=== PATIENT | female | born 1945 | race Caucasian/White ===

== ENCOUNTER 2018-02-23 00:38 | Outpatient (CLI) | payer MEDICARE, SELFPAY ==
--- NOTE | 2018-02-23 13:02 | DI.MAMMO_ITS ---
SYMPTOM/DIAGNOSIS: SCREENING, Z12.31 PREVENTATIVE CARE Z00.00 MAMMOGRAM: 02/23 Mammograms were interpreted according to the usual protocol including computer analysis with CAD system, tomosynthesis and C view imaging. The breasts are of moderate density with fairly symmetrical distribution of fibroglandular tissue. No dominant mass or clumped microcalcification is identified in either breast. The current examination is compared with previous examinations including July 2016 and there has been no gross interval change in appearance in comparison with the previous studies. CONCLUSION: No specific evidence of malignancy at this time. Routine screening examinations are suggested at yearly intervals due to the family history of breast carcinoma. Category 1, breast density category B. SA ASSESSMENT OF FINDINGS: Negative. Category 1. Patient will receive a letter notifying them of these results. BI-RADS category B. There are scattered areas of fibroglandular density.
== END 2018-02-23 00:58 ==
PROVIDERS: PCP Internal Medicine; Visit Provider Internal Medicine
DX: Z12.31 Encounter for screening mammogram for malignant neoplasm of breast (principal); Z80.3 Family history of malignant neoplasm of breast
CPT/HCPCS: 77063; 77067

== ENCOUNTER 2018-05-26 18:18 | Emergency (ER) | payer MEDICARE, SELFPAY ==
[2018-05-26] VITALS (24 sets, daily range): BP systolic 141–149; BP diastolic 56–128; PULSE 86–99; RESP 17; TEMP 37.7; O2SAT 83–96
--- NOTE | 2018-05-26 18:24 | ED.GENADUL_ITS ---
Discharge Plan Disposition Patient Disposition: HOME Condition: Stable Discharge Details Chief Complaint: Nausea/Vomit/Diar Clinical Impression: Colitis Reason For Visit: VIVIAN Primary Care Provider: Trent Weeks ED Provider: Saul Reynoso Home Meds and New Rx's Prescriptions: New prochlorperazine maleate [Compazine] 10 mg tablet 10 mg PO Q6H 5 Days Qty: 20 RF: 0 levofloxacin 750 mg tablet 750 mg PO DAILY Qty: 5 RF: 0 oxycodone 5 mg tablet 5 mg PO Q6H PRN (Reason: pain) Qty: 10 RF: 0 Continued multivitamin [Daily Multi-Vitamin] tablet 1 tab PO DAILY RF: 0 turmeric root extract 500 mg capsule 500 mg PO DAILY RF: 0 Lantus U-100 Insulin 100 UNIT/1 ML solution 58 units Sub-Q DAILY RF: 0 Novolog Flexpen U-100 Insulin 300 UNITS/3 ML insulin pen Sub-Q TID RF: 0 aspirin [Ecotrin Low Strength] 81 MG tablet,delayed release (DR/EC) 81 mg PO DAILY RF: 0 metoprolol succinate 25 MG tablet extended release 24 hr 25 mg PO DAILY RF: 0 torsemide 100 MG tablet 50 mg PO DAILY RF: 0 allopurinol 100 MG tablet 200 mg PO QPM RF: 0 citalopram [Celexa] 20 MG tablet 20 mg PO QPM RF: 0 bupropion HCl [Wellbutrin SR] 150 MG tablet extended release 12 hr 150 mg PO BID RF: 0 acetaminophen [Tylenol] 325 MG tablet 650 mg PO Q6H PRN PRN (Reason: Pain) Qty: 90 RF: 0 ascorbic acid (vitamin C) 500 MG tablet 500 mg PO DAILY Qty: 90 RF: 0 vitamin E 400 UNIT capsule 400 unit PO DAILY Qty: 90 RF: 0 Discharge Instructions Instructions: Colitis (ED) Additional Instructions: Your cat scan showed that you have inflammation of your colon. We are treating you with antibiotics you need to take your prescribed medications especially your torsemide Your troponin was just oustide the normal range and was in the indeterminate range. If you have chest pain or pressure or significant shortness of breath you need to return to the emergency department Also return to the emergency department if you have severe worsening of pain or persistent vomit you should follow up with your primary care provider within a week. You stated you do not want to have a colonoscopy but if you change your mind your primary care provider should be able to refer you to have one Medical Decision Making <Jaswinder Burton MD - Last Filed: 05/26/18 19:45> 72-year-old female diabetic presents via EMS from home with day 4 of nausea, vomiting, multiple episodes of loose watery stool. She is not, no chest pain abdominal pain or bloating or bloating. She has been attending to her as he is getting cancer treatment at [facility]. No known sick contacts or recent travel. She arrives to the emergency department improved following 500 cc of normal saline and Zofran. She may have simple gastroenteritis or other developing intrabdominal pathology, particularly given her tenderness of the LLQ on exam. Initial labs reveal WBC 17, BUN 26, Cr 1.6, troponin in the indeterminate range at 0.08. The latter may represent stress-induced increase of troponin. Patient referred for CT imaging to exclude diverticulitis or other evidence of peritonitis. Case will be signed out to Dr. Reynoso pending diagnostic imaging. Please see his note. Lab Data Lab results reviewed: Yes I reviewed the patient's lab results. Laboratory Results - last 24 hr 05/26/18 05/26/18 19:02 19:02 WBC 17.33 H RBC 4.30 Hgb 13.3 Hct 40.7 MCV 94.7 MCH 30.9 MCHC 32.7 RDW 14.1 Plt Count 126 L MPV 11.7 H Immature Gran % 0.2 Neutrophils % 88.1 Lymphocytes % 5.0 Monocytes % 6.6 Eosinophils % 0.0 Basophils % 0.1 Absolute Neutrophils 15.27 H Absolute Lymphocytes 0.87 L Absolute Monocytes 1.14 H Absolute Eosinophils 0.00 Absolute Basophils 0.02 Sodium 140 Potassium 3.8 Chloride 102 Carbon Dioxide 29.3 Anion Gap 8.7 BUN 26 H Creatinine 1.68 H Estimated GFR/1.73 m2 29.78 Glucose 285 H Calcium 8.9 Magnesium 1.7 L Total Bilirubin 1.0 AST 23 ALT 30 Alkaline Phosphatase 66 Troponin I 0.08 H Total Protein 6.5 Albumin 3.4 Lipase 87 ECG Data Attestation: I personally reviewed and interpreted this ECG (s) as follows: Interpretation: Normal sinus rhythm with a rate of approximately 100, there is an ventricular conduction delay, positive LVH, repolarization abnormalities with T wave inversions that are similar to previous comparison <Saul Reynoso MD - Last Filed: 05/26/18 22:11> Imaging Data Radiologic Study: Attestation: I personally reviewed and interpreted this imaging study as follows: Imaging: CT Scan Radiologist's impression: IMPRESSION: 1. Mild diffuse colon wall thickening may be related to under distention versus colitis. 2. Bibasilar intralobular septal thickening with trace bilateral pleural effusions suggestive of mild CHF. Lab Data Lab results reviewed: Yes I reviewed the patient's lab results. HPI <Jaswinder Burton MD - Last Filed: 05/26/18 19:45> General Mode of arrival: EMS . Date/Time Provider Initiated Documentation: 05/26/18 18:48 . Limitations to Documentation: no limitations . Information obtained by: patient and EMS . History of Present Illness 72 year old F presents to the emergency department with the chief complaint of Nausea, vomiting, diarrhea for 4 days. Unable to take liquids or solids, described as moderate, Quality is described as dull and constant, and is localized to the abdomen. Patient reports no radiation. Patient started experiencing this day(s) and it has been constant. Eating improves symptom(s), Rest worsens symptoms . Patient notes nausea/vomiting and weakness; denies chest pain and cough. Patient did receive the following treatments prior to arrival, other (IV fluids per EMS) Related Data Home Medications Medication Instructions Recorded Confirmed Lantus U-100 Insulin 58 units SUB-Q DAILY 09/24/12 02/23/18 Novolog Flexpen U-100 Insulin 0 units SUB-Q TID 09/24/12 05/26/18 aspirin [Ecotrin Low Strength] 81 mg PO DAILY 07/27/13 05/26/18 metoprolol succinate 25 mg PO DAILY 07/27/13 05/26/18 torsemide 50 mg PO DAILY 01/16/14 05/26/18 allopurinol 200 mg PO QPM 10/23/16 05/26/18 acetaminophen [Tylenol] 650 mg PO Q6H PRN PRN #90 tab 10/25/16 05/26/18 ascorbic acid (vitamin C) 500 mg PO DAILY #90 tab 10/25/16 05/26/18 bupropion HCl [Wellbutrin SR] 150 mg PO BID 10/25/16 05/26/18 citalopram [Celexa] 20 mg PO QPM 10/25/16 05/26/18 vitamin E 400 unit PO DAILY #90 cap 10/25/16 05/26/18 multivitamin tablet 1 tab PO DAILY 02/23/18 05/26/18 turmeric root extract 500 mg 500 mg PO DAILY 02/23/18 05/26/18 capsule levofloxacin 750 mg PO DAILY #5 tab 05/26/18 oxycodone 5 mg PO Q6H PRN #10 tab 05/26/18 prochlorperazine maleate 10 mg PO Q6H 5 Days #20 tab 05/26/18 [Compazine] Previous Rx's Medication Instructions Recorded acetaminophen [Tylenol] 650 mg PO Q6H PRN PRN #90 tab 10/25/16 ascorbic acid (vitamin C) 500 mg PO DAILY #90 tab 10/25/16 vitamin E 400 unit PO DAILY #90 cap 10/25/16 levofloxacin 750 mg PO DAILY #5 tab 05/26/18 oxycodone 5 mg PO Q6H PRN #10 tab 05/26/18 prochlorperazine maleate 10 mg PO Q6H 5 Days #20 tab 05/26/18 [Compazine] Allergies Allergy/AdvReac Type Severity Reaction Status Date / Time ciprofloxacin [From Cipro] Allergy Severe Itching Verified 05/26/18 18:51 ciprofloxacin HCl Allergy Severe Verified 05/26/18 18:51 [From Cipro] latex Allergy Severe Itching Verified 05/26/18 18:51 mupirocin [From Bactroban] Allergy Severe Verified 05/26/18 18:51 mupirocin calcium Allergy Severe Verified 05/26/18 18:51 [From Bactroban] Penicillins Allergy Severe Anaphylaxsi Verified 05/26/18 18:51 s sulfamethoxazole Allergy Intermediate Skin Rash Verified 05/26/18 18:51 [From Septra] trimethoprim [From Septra] Allergy Intermediate Skin Rash Verified 05/26/18 18: 51 ranitidine HCl [From Zantac] Allergy Unknown Verified 05/26/18 18:51 cephalexin monohydrate AdvReac Intermediate Itching Verified 05/26/18 18:51 [From Keflex] clindamycin AdvReac Intermediate Nausea Verified 05/26/18 18:51 repaglinide [From Prandin] AdvReac Intermediate myalgia Verified 05/26/18 18:51 simvastatin AdvReac Intermediate myalgia Verified 05/26/18 18:51 Review of Systems <Jaswinder Burton MD - Last Filed: 05/26/18 19:45> Review of Systems 6 systems reviewed and otherwise negative PFSH <Jaswinder Burton MD - Last Filed: 05/26/18 19:45> Surgical History Triple Coronary bypass (~2012) aortic valve replacement (~2012) Family History Mother Breast cancer Social History Smoking/Tobacco Use Status: Never Female Reproductive History Menstrual Menopause type: natural History History 2 Para 2 Hx # Term Pregnancies 2 Multiple births Hx # Pregnancies Ectopic pregnancies AB induced Hx Number of Living Children AB spontaneous Exam <Jaswinder Burton MD - Last Filed: 05/26/18 19:45> Narrative Exam Narrative: GEN: awake, alert, oriented 3. Pleasant, well groomed, interactive. HEAD: Normocephalic, atraumatic ENT: Mucous membranes moist, oropharynx unremarkable, External ear exam unremarkable EYES: PERRL, EOMI NECK: Full ROM, no LUIS, no menigismus CHEST/RESP: Nontender, clear to auscultation bilateral, no wheeze/rhonchi/rales CARDIOVASCULAR: Borderline tachycardia, systolic ejection click, rub anson. 2+ Rad pulse bilateral ABDOMEN: Soft, LLQ tender to palpation, no mass. +Bowel sounds EXT: Full ROM, no edema, no rash Neuro: Grossly normal neurologic exam, conversant, interactive. Psych: Speech fluent, thoughts congruent, affect normal Sign Out <Jaswinder Burton MD - Last Filed: 05/26/18 19:45> Sign Out Data: Sign Out Comment: Followup diagnostics Last updated by Jaswinder Burton MD at 05/26/18 19:51 Post-Handoff Eval: PT resting comfortably in bed without complaints after pain medication and nausea medicine and is toleating PO. CT shows colitis and mild chf, she is supposed to be on torsemide which she hasn't been able to take for 3 days or so due to her n/v and gi symptoms and is likely causing her o2 saturations of 90% on room air during my exam. Her first troponin was 0.08 and second 0.15, denies any chest pain or pressure. I suspect this is demand type elevation of her elevated troponin and not an nstemi given her lack of chest pain. She has no desire to stay in the hospital and wants to be discharged to home and has capacity to make her own decisions. I am strongly advising the pt to f/u with her pcp within a week and will send her home on abx (started here without reactions, levofloxacin) along with nausea medication (compazine as this helped her more than zofran) and advised her to return here sooner if any worsening symptoms
[2018-05-26] MEDS: Lactated Ringers 1,000 ML 125 ML IV (19:12)
[2018-05-26 19:15] LABS: Abs Immature Grans 0.03 k/cumm (0.0-0.09); Absolute Basophil Count 0.02 k/cumm (0.0-0.2); Absolute Lymphocyte Count 0.87 k/cumm (1.2-3.4); Absolute Monocyte Count 1.14 k/cumm (0.11-0.7); Absolute Neutrophil Count 15.27 k/cumm (1.2-6.7); Basophils % 0.1; HCT 40.7 % (36.0-46.0); HGB 13.3 g/dL (12.0-15.5); Immature Grans % 0.2; Mean Corp. HGB Concentration 32.7 g/dL (32.0-36.0); Mean Corpuscular Hemoglobin 30.9 pg (27.0-33.0); Mean Corpuscular Volume 94.7 fL (80-95); Mean Platelet Volume 11.7 fL (8.0-11.0); Monocytes % 6.6; Neutrophils % 88.1; Platelet Count 126 x1000/uL (130-400); RBC Distribution Width 14.1 % (11.7-14.6); White Blood Cell Count 17.33 k/cumm (4.4-10.8)
[2018-05-26 19:38] LABS: ALT 30 U/L (12-78); AST 23 U/L (15-37); Albumin 3.4 g/dL (3.4-5.0); Alkaline Phosphatase 66 U/L (46-116); Anion Gap 8.7 mmol/L (3-11); BUN 26 mg/dL (7-18); CO2 29.3 mmol/L (21.0-32.0); CREATININE 1.68 mg/dL (0.55-1.02); Calcium 8.9 mg/dL (8.5-10.1); Chloride 102 mmol/L (98-107); Estimated GFR 29.78 (mL/min/1.73m2); Glucose 285 mg/dL (70-100); Lipase 87 U/L (73-393); Magnesium 1.7 mg/dL (1.8-2.4); Potassium 3.8 mmol/L (3.5-5.1); Sodium 140 mmol/L (136-145); Total Protein 6.5 g/dL (6.4-8.2)
[2018-05-26 19:40] LABS: Troponin I 0.08 ng/mL (0.00-0.06)
--- NOTE | 2018-05-26 19:43 | DI.CT_ITS ---
SYMPTOMS/DIAGNOSIS: ELEVATED CREATININE, LLQ ABD PAIN, VOMITING CT OF THE ABDOMEN AND PELVIS: Noncontrast exam was performed. There are tiny bilateral pleural effusions. There are mildly increased interstitial markings suspicious for CHF. No pericardial effusion is seen. The heart appears mildly enlarged. There is a small hiatal hernia. The liver, spleen, adrenals and pancreas are unremarkable. Gallstones are noted. There is no biliary dilatation or abnormal gallbladder distention. There is no hydronephrosis. There is no free air or free fluid. No bowel dilatation or inflammatory changes are seen. The appendix appears normal. A uterine fibroid is seen. The bladder appears intact. Degenerative changes are seen in the spine. IMPRESSION: Findings suggestive of mild CHF. No acute abnormality is seen in the abdomen or pelvis.
[2018-05-26] MEDS: Ondansetron 4 MG/2 ML VIAL (20:31)
[2018-05-26] MEDS: fentaNYL 100 MCG/2 ML VIAL IVP (20:31)
--- NOTE | 2018-05-26 20:51 | DI.VRAD_ITS ---
EXAM: CT Abdomen and Pelvis Without Contrast EXAM DATE/TIME: 05/26/2018 7:44 PM CLINICAL HISTORY: 72 years old, female; Pain; Other: Elev creat llq abd pain vomiting TECHNIQUE: Axial computed tomography images of the abdomen and pelvis without contrast. Coronal and sagittal reformatted images were created and reviewed. COMPARISON: No relevant prior studies available. FINDINGS: Lower thorax: Mild bibasilar intralobular septal thickening with trace bilateral pleural effusions suggestive of mild CHF. ABDOMEN: Liver: Normal. No mass. Gallbladder and bile ducts: Cholelithiasis without evidence of gallbladder wall thickening or pericholecystic fluid. Small calcified calculus likely in the gallbladder neck, no CT evidence of acute cholecystitis. Pancreas: Normal. No ductal dilation. Spleen: Normal. No splenomegaly. Adrenals: Normal. No mass. Kidneys and ureters: Punctate calculus in the left renal hilum either a nonobstructing renal calculus versus small vascular calcification. Stomach and bowel: No evidence of enteritis or small bowel obstruction. Mild colon wall thickening involving the ascending, transverse, and sigmoid colon may be related to under distention versus colitis. Appendix: Normal appendix. PELVIS: Bladder: Unremarkable as visualized. Reproductive: Unremarkable as visualized. ABDOMEN and PELVIS: Intraperitoneal space: No pneumoperitoneum or free fluid. Bones/joints: Moderate multilevel degenerative changes of the spine with grade 1 anterolisthesis of L3 on L4 and L4 on L5. Soft tissues: Mild infiltration of the subcutaneous soft tissues in the mid lower back, likely representing dependent edema. Vasculature: Moderate aortoiliac atherosclerotic calcification. Normal aortic caliber. Lymph nodes: Normal. No enlarged lymph nodes. IMPRESSION: 1. Mild diffuse colon wall thickening may be related to under distention versus colitis. 2. Bibasilar intralobular septal thickening with trace bilateral pleural effusions suggestive of mild CHF. Dictated and Authenticated by: Rachel Loyd MD. Ordering:ALISHA San MD
[2018-05-26] MEDS: Furosemide 100 MG/10 ML VIAL 80 MG IVP (21:07)
[2018-05-26] MEDS: LEVOFLOXACIN 500 MG, LEVOFLOXACIN 250 MG 750 MG PO ×2 (21:07→22:15)
[2018-05-26] MEDS: Prochlorperazine 10 MG/2 ML VIAL IVP (21:31)
[2018-05-26] MEDS: HYDROmorphone 2 MG/ML VIAL 1 MG IVP (21:31)
[2018-05-26 21:46] LABS: Troponin I 0.15 ng/mL (0.00-0.06)
[2018-05-26] MEDS: oxyCODONE 5 MG TAB 25 MG PO (22:15)
[2018-05-26] MEDS: Prochlorperazine 10 MG TAB PO (22:15)
--- NOTE | 2018-05-28 10:33 | PDOC.ERCMPRO ---
Care Management Progress Note 05/28-Marguerite's daughter Rosana Rothman called and stated that her mother has no way to get her prescription. Marguerite was seen in the emergency department Friday evening. Rosana does not live around here so she can not just go pick it up. Called [facility] and they deliver on Mon, Weds, Fri. Called [facility] and they deliver M-F but the bulk driver leaves by 9 am so they can not do it today. Called Rosana back at [phone] and discussed above. Rosana stated that her father recently had surgery and has home health. Normally her mother can picking table worker her meds but she is too sick. She was supposed to take some of the medication yesterday. Discussed with Rosana to call Home Health and see if they could picking table worker the scripts before they come, gave [facility]ana Home [facility]'s number. Also discussed if a neighbor could picking table worker the scripts. Rosana stated she would try home health and then the neighbor. Rosana has my contact information if further assistance is needed.
--- NOTE | 2018-05-28 10:37 | CMPROGNOTE_ITS ---
Care Management Progress Note 05/28-Marguerite's daughter Rosana Rothman called and stated that her mother has no way to get her prescription. Marguerite was seen in the emergency department Friday evening. Rosana does not live around here so she can not just go pick it up. Called [facility] and they deliver on Mon, Weds, Fri. Called [facility] and they deliver M-F but the dedicated truck driver leaves by 9 am so they can not do it today. Called Rosana back at [phone] and discussed above. Rosana stated that her father recently had surgery and has home health. Normally her mother can oyster picker her meds but she is too sick. She was supposed to take some of the medication yesterday. Discussed with Rosana to call Home Health and see if they could oyster picker the scripts before they come, gave [facility]ana Home [facility]'s number. Also discussed if a neighbor could oyster picker the scripts. Rosana stated she would try home health and then the neighbor. Rosana has my contact information if further assistance is needed.
--- NOTE | 2018-06-02 08:06 | NUR.NOTE ---
Nursing Note: Patient called, not feeling any better. Tried PCP last week but did not call back. Told patient to return to ED or call PCP and see anyone in Dr. Weeks office if she can get in. Shameka Hunag.
== END 2018-05-26 22:31 | disposition home or self-care (01) ==
PROVIDERS: Emergency Medicine; Emergency Provider Emergency Medicine; PCP Internal Medicine
DX: K52.9 Noninfective gastroenteritis and colitis, unspecified (principal)
CPT/HCPCS: 80053; 83690; 93005; 96361; 96374; 96375; 99284; 74176; 83735; 84484; 85025; 93010; J0780; J1940; J2405; J3010

== ENCOUNTER 2018-06-02 10:40 | Inpatient (IN) | payer MEDICARE, SELFPAY ==
[2018-06-02] VITALS (67 sets, daily range): BP systolic 111–171; BP diastolic 56–108; PULSE 60–91; RESP 6–25; TEMP 36.5; O2SAT 91–99
--- NOTE | 2018-06-02 11:34 | DI.CT_ITS ---
SYMPTOMS/DIAGNOSIS: LEFT-SIDED ABDOMINAL PAIN, VOMITING, ? DIVERTICULITIS CT SCAN OF THE ABDOMEN AND PELVIS: CT scan of the abdomen and pelvis was performed without intravenous or oral contrast material. Comparison examination is 05/26/18. No acute findings are seen in the lung bases. The heart is enlarged. There is a moderate-sized hiatal hernia. Lack of IV contrast does limit evaluation of the abdominal and pelvic organs. The unenhanced liver, spleen, pancreas and adrenal glands are unremarkable. There are again seen stones in the gallbladder with a stone which appears to be in the neck. No biliary ductal dilatation is present. The kidneys show no evidence of nephrolithiasis or obstructive uropathy. The urinary bladder is intact. Reproductive organs are grossly unremarkable as visualized. The bowel shows no evidence of obstruction or inflammation. No findings to suggest an acute appendicitis are present. The abdominal aorta is of normal caliber. No significant abdominal or pelvic adenopathy, ascites or pneumoperitoneum is seen. Degenerative changes are seen in the spine. There is patient motion artifact present. IMPRESSION: No evidence of an acute abdomen. The findings were discussed with the Emergency Department on the date of the examination.
--- NOTE | 2018-06-02 11:45 | ED.GENADUL_ITS ---
Discharge Plan Disposition Patient Disposition: [facility] INPATIENT Condition: Stable Discharge Details Chief Complaint: Abd Prob Clinical Impression: Abdominal pain, Acute kidney injury superimposed on chronic kidney disease, Elevated troponin, Vomiting Reason For Visit: ABDOMINAL PAIN Admit Date/Time: 06/02/18 18:57 Admit Provider: Luis Trivedi Attending Provider: Luis Trivedi Primary Care Provider: Trent Weeks ED Provider: Jazmyne Pierce Discharge Data Discharge Date/Time-TO BE ENTERED AT DEPARTURE: 06/02/18 20:56 Discharge Physician: Jazmyne Pierce Medical Decision Making 72-year-old female with a history of coronary artery disease, diabetes, hypertension, hyperlipidemia, CABG and aortic valve replacement who presents for chronic left mid and lower abdominal pain and vomiting for the past 10 days. Patient was seen here 9 days ago for the same complaint and diagnosed with colitis and sent home with oxycodone, Compazine and Levaquin. Patient denies relief with oxycodone or Compazine and states she has also been unable to keep medicines down. BP hypertensive, heart rate 90s, afebrile with normal respiratory rate and oxygen saturation. Lungs clear to auscultation. Abdomen soft and very minimally tender in the left mid and lower quadrant. No right lower quadrant tenderness. No rebound or guarding. Due to patient's age, chronicity of symptoms without relief, will repeat labs and imaging. Patient is demanding pain medication and was also seen at PCP office just prior to this and left because she did not receive any pain meds, and is questioning why she has not yet received any. Will place an IV, bolus IV fluids, labs, urinalysis, morphine and Phenergan and repeat CT imaging. 1300 --labs reviewed and note normal white blood cell count. Potassium 3.4. Creatinine 2.21, was 1.68 last week. Glucose 331. Troponin 0.37, was 0.08 and 0.15 on last week. Patient had normal EKG last week and has a normal EKG today and denies any chest pain or shortness of breath. Suspect troponin is demand ischemia due to vomiting and acute kidney injury. 1400 --CT reviewed and negative. Patient states her pain is significantly improved and she denies any nausea. Unable to obtain urinalysis yet, will give additional IV fluids and plan for repeat troponin and BMP. 1700 --repeat labs reviewed and note troponin still elevated but downtrending to 0.31. Creatinine improved to 2.07. Compared to previous labs, pt has had chronic kidney disease but this is elevated compared to recently. Patient states her pain is improving. Patient states she does not feel comfortable go ing home as her is sick with cancer and needs significant care, and she is concerned due to her persistent pain. Will admit for pain control, and for recheck of labs in a.m. 1730 --d/w hospitalist - accepts pt for admission. Medical Records Medical records reviewed: Yes I reviewed the patient's medical records. Imaging Data Radiologic Study: Radiologist's impression: CT:CT abdomen & pelvis wo SYMPTOMS/DIAGNOSIS: LEFT-SIDED ABDOMINAL PAIN, VOMITING, ? DIVERTICULITIS CT SCAN OF THE ABDOMEN AND PELVIS: CT scan of the abdomen and pelvis was performed without intravenous or oral contrast material. Comparison examination is 05/26/18. No acute findings are seen in the lung bases. The heart is enlarged. There is a moderate-sized hiatal hernia. Lack of IV contrast does limit evaluation of the abdominal and pelvic organs. The unenhanced liver, spleen, pancreas and adrenal glands are unremarkable. There are again seen stones in the gallbladder with a stone which appears to be in the neck. No biliary ductal dilatation is present. The kidneys show no evidence of nephrolithiasis or obstructive uropathy. The urinary bladder is intact. Reproductive organs are grossly unremarkable as visualized. The bowel shows no evidence of obstruction or inflammation. No findings to suggest an acute appendicitis are present. The abdominal aorta is of normal caliber. No significant abdominal or pelvic adenopathy, ascites or pneumoperitoneum is seen. Degenerative changes are seen in the spine. There is patient motion artifact present. IMPRESSION: No evidence of an acute abdomen. Lab Data Lab results reviewed: Yes I reviewed the patient's lab results. Laboratory Tests Range/Units 06/02/18 06/02/18 06/02/18 11:56 11:56 11:56 WBC (4.4-10.8) k/cumm 9.52 RBC (4.00-5.20) m/cumm 5.03 Hgb (12.0-15.5) g/dL 15.3 Hct (36.0-46.0) % 45.7 MCV (80-95) fL 90.9 MCH (27.0-33.0) pg 30.4 MCHC (32.0-36.0) g/dL 33.5 RDW (11.7-14.6) % 13.9 Plt Count (130-400) x1000/uL 143 MPV (8.0-11.0) fL 11.5 H Immature Gran % 0.3 Neutrophils % 73.3 Lymphocytes % 16.2 Monocytes % 9.7 Eosinophils % 0.1 Basophils % 0.4 Absolute Neutrophils (1.2-6.7) k/cumm 6.98 H Absolute Lymphocytes (1.2-3.4) k/cumm 1.54 Absolute Monocytes (0.11-0.7) k/cumm 0.92 H Absolute Eosinophils (0.0-0.7) k/cumm 0.01 Absolute Basophils (0.0-0.2) k/cumm 0.04 Sodium (136-145) mmol/L 138 Potassium (3.5-5.1) mmol/L 3.4 L Chloride (98-107) mmol/L 98 Carbon Dioxide (21.0-32.0) mmol/L 28.5 Anion Gap (3-11) mmol/L 11.5 H BUN (7-18) mg/dL 28 H Creatinine (0.55-1.02) mg/dL 2.21 H Estimated GFR/1.73 m2 (mL/min/1.73m2) 21.70 Glucose (70-100) mg/dL 331 H Calcium (8.5-10.1) mg/dL 9.3 Magnesium (1.8-2.4) mg/dL 1.2 L Total Bilirubin (0.2-1.0) mg/dL 1.1 H AST (15-37) U/L 24 ALT (12-78) U/L 97 H Alkaline Phosphatase (46-116) U/L 70 Troponin I (0.00-0.06) ng/mL 0.37 H Total Protein (6.4-8.2) g/dL 7.1 Albumin (3.4-5.0) g/dL 3.7 Lipase (73-393) U/L 232 Urine Color (Yellow) Urine Clarity Urine pH (5-8) Ur Specific [place] (1.005-1.025) Urine Protein (Negative) mg/dL Urine Ketones (Negative) mg/dL Urine Blood (Negative) Urine Nitrite (Negative) Urine Bilirubin (Negative) Urine Urobilinogen (Up TO 0.2) EU/dL Ur Leukocyte Esterase (Negative) Urine RBC (0-2) Urine WBC (0-5) HPF Ur Epithelial Cells (Negative) HPF Urine Crystals (Negative) HPF Urine Bacteria (Negative) HPF Urine Casts (Negative) LPF Urine Mucus (Negative) Ur Culture Indicated? Urine Glucose (Negative) mg/dL Range/Units 06/02/18 06/02/18 14:35 16:11 WBC (4.4-10.8) k/cumm RBC (4.00-5.20) m/cumm Hgb (12.0-15.5) g/dL Hct (36.0-46.0) % MCV (80-95) fL MCH (27.0-33.0) pg MCHC (32.0-36.0) g/dL RDW (11.7-14.6) % Plt Count (130-400) x1000/uL MPV (8.0-11.0) fL Immature Gran % Neutrophils % Lymphocytes % Monocytes % Eosinophils % Basophils % Absolute Neutrophils (1.2-6.7) k/cumm Absolute Lymphocytes (1.2-3.4) k/cumm Absolute Monocytes (0.11-0.7) k/cumm Absolute Eosinophils (0.0-0.7) k/cumm Absolute Basophils (0.0-0.2) k/cumm Sodium (136-145) mmol/L 141 Potassium (3.5-5.1) mmol/L 3.6 Chloride (98-107) mmol/L 104 Carbon Dioxide (21.0-32.0) mmol/L 30.1 Anion Gap (3-11) mmol/L 6.9 BUN (7-18) mg/dL 24 H Creatinine (0.55-1.02) mg/dL 2.07 H Estimated GFR/1.73 m2 (mL/min/1.73m2) 23.41 Glucose (70-100) mg/dL 278 H Calcium (8.5-10.1) mg/dL 8.1 L Magnesium (1.8-2.4) mg/dL Total Bilirubin (0.2-1.0) mg/dL AST (15-37) U/L ALT (12-78) U/L Alkaline Phosphatase (46-116) U/L Troponin I (0.00-0.06) ng/mL 0.31 H Total Protein (6.4-8.2) g/dL Albumin (3.4-5.0) g/dL Lipase (73-393) U/L Urine Color (Yellow) Yellow Urine Clarity Clear Urine pH (5-8) 7.0 Ur Specific [place] (1.005-1.025) 1.010 Urine Protein (Negative) mg/dL Negative Urine Ketones (Negative) mg/dL Trace H Urine Blood (Negative) Trace-intact H Urine Nitrite (Negative) Negative Urine Bilirubin (Negative) Negative Urine Urobilinogen (Up TO 0.2) EU/dL 0.2 Ur Leukocyte Esterase (Negative) Negative Urine RBC (0-2) 3-5 H Urine WBC (0-5) HPF 0-2 Ur Epithelial Cells (Negative) HPF Few Urine Crystals (Negative) HPF Negative Urine Bacteria (Negative) HPF Rare Urine Casts (Negative) LPF Negative Urine Mucus (Negative) Negative Ur Culture Indicated? No Urine Glucose (Negative) mg/dL 500 H ECG Data Attestation: I personally reviewed and interpreted this ECG (s) as follows: Interpretation: Rate 72. Sinus. Occasional PVCs. T wave inversion in lead V5 and V6 seen in previous EKG. Less than [address] depression seen in V4. No acute ST elevation. QRS 122. QTc 451. HPI General Mode of arrival: ambulatory . Date/Time Provider Initiated Documentation: 06/02/18 11:11 . Limitations to Documentation: no limitations . Information obtained by: patient . HPI Narrative: Patient is a 72-year-old female who presents for vomiting and abdominal pain for the past 10 days. Patient states her pain is in the left mid and lower quadrant, constant, sharp without aggravating or relieving factors. Patient was seen here 10 days ago for the same complaint and had CT was noted flatus and she was sent home with Levaquin of which she has been taking. Patient was also given Compazine for her vomiting but this is not helped. Patient states she has vomited multiple times a day which consist mainly of bile. Patient was also given oxycodone for pain without relief. States today she took 1 dose at 8 AM but vomited shortly after. Patient states she initially had diarrhea 10 days ago when her symptoms started but has had no bowel movement since then. Patient denies fever, urinary symptoms, sick contacts, recent travel or recent hospital admission. Related Data Home Medications Medication Instructions Recorded Confirmed Lantus U-100 Insulin 58 units SUB-Q DAILY 09/24/12 06/02/18 Novolog Flexpen U-100 Insulin 0 units SUB-Q TID 09/24/12 06/02/18 aspirin [Ecotrin Low Strength] 81 mg PO DAILY 07/27/13 06/02/18 metoprolol succinate 25 mg PO DAILY 07/27/13 06/02/18 torsemide 50 mg PO DAILY 01/16/14 06/02/18 allopurinol 200 mg PO QPM 10/23/16 06/02/18 acetaminophen [Tylenol] 650 mg PO Q6H PRN PRN #90 tab 10/25/16 06/02/18 ascorbic acid (vitamin C) 500 mg PO DAILY #90 tab 10/25/16 06/02/18 bupropion HCl [Wellbutrin SR] 150 mg PO BID 10/25/16 06/02/18 citalopram [Celexa] 20 mg PO QPM 10/25/16 06/02/18 vitamin E 400 unit PO DAILY #90 cap 10/25/16 06/02/18 multivitamin tablet 1 tab PO DAILY 02/23/18 06/02/18 turmeric root extract 500 mg 500 mg PO DAILY 02/23/18 06/02/18 capsule levofloxacin 750 mg PO DAILY #5 tab 05/26/18 06/02/18 oxycodone 5 mg PO Q6H PRN #10 tab 05/26/18 06/02/18 Previous Rx's Medication Instructions Recorded acetaminophen [Tylenol] 650 mg PO Q6H PRN PRN #90 tab 10/25/16 ascorbic acid (vitamin C) 500 mg PO DAILY #90 tab 10/25/16 vitamin E 400 unit PO DAILY #90 cap 10/25/16 levofloxacin 750 mg PO DAILY #5 tab 05/26/18 oxycodone 5 mg PO Q6H PRN #10 tab 05/26/18 Allergies Allergy/AdvReac Type Severity Reaction Status Date / Time ciprofloxacin [From Cipro] Allergy Severe Itching Verified 06/02/18 11:03 ciprofloxacin HCl Allergy Severe Verified 06/02/18 11:03 [From Cipro] latex Allergy Severe Itching Verified 06/02/18 11:03 mupirocin [From Bactroban] Allergy Severe Verified 06/02/18 11:03 mupirocin calcium Allergy Severe Verified 06/02/18 11:03 [From Bactroban] Penicillins Allergy Severe Anaphylaxsi Verified 06/02/18 11:03 s sulfamethoxazole Allergy Intermediate Skin Rash Verified 06/02/18 11:03 [From Septra] trimethoprim [From Septra] Allergy Intermediate Skin Rash Verified 06/02/18 11:03 ranitidine HCl [From Zantac] Allergy Unknown Verified 06/02/18 11:03 cephalexin monohydrate AdvReac Intermediate Itching Verified 06/02/18 11:03 [From Keflex] clindamycin AdvReac Intermediate Nausea Verified 06/02/18 11:03 repaglinide [From Prandin] AdvReac Intermediate myalgia Verified 06/02/18 11:03 simvastatin AdvReac Intermediate myalgia Verified 06/02/18 11:03 General Stated Complaint: Abd Prob SIDRA: 3 Review of Systems Review of Systems All systems reviewed & are unremarkable except as noted in HPI and below Constitutional Reports as per HPI, Denies chills and Denies fever(s) Eyes Denies blurry vision ENT Denies dizziness, Denies sore throat and Denies throat swelling Cardiovascular Denies chest pain and Denies dyspnea Respiratory Denies dyspnea Gastrointestinal Reports abdominal pain, Denies diarrhea and Reports vomiting Genitourinary Denies hematuria and Denies dysuria Musculoskeletal Denies back pain and Denies numbness Integumentary/Breasts Denies lesions and Denies rash Neurologic Denies dizziness and Denies numbness Allergic/Immunologic Denies throat swelling [facility] Medical History Chronic kidney disease (Acute) Hyperlipemia (Acute) Coronary artery disease (Chronic) Depression (Chronic) Diabetes (Chronic) Gout (Chronic) HTN (hypertension) (Chronic) Obstructive sleep apnea (Chronic) Surgical History H/O aortic valve replacement (Acute) Hx of CABG (Chronic) Triple Coronary bypass (~2012) aortic valve replacement (~2012) Family History Mother Breast cancer Social History Smoking/Tobacco Use Status: Never alcohol intake: never substance use type: does not use Female Reproductive History Menstrual Menopause type: natural History History 2 Para 2 Hx # Term Pregnancies 2 Multiple births Hx # Pregnancies Ectopic pregnancies AB induced Hx Number of Living Children AB spontaneous Exam Const General: cooperative and healthy appearing Orientation: alert and awake HENMT Head: normal to inspection Ears: hearing grossly normal bilaterally and external ears normal General nose exam: external nose normal Face and sinus: normal facial exam Mouth: oral mucosae normal Eyes General: appearance normal, both eyes and all related structures Eyelids: eyelids normal EOM: EOM intact bilaterally Neck Neck: normal visual inspection Lymphatic: no lymphadenopathy noted Chest Chest: normal inspection of the chest Resp Effort & Inspection: normal respiratory effort and able to speak in complete sentences Auscultation: clear to auscultation bilaterally Cardio Rate: regular rate Rhythm: regular rhythm GI Inspection: normal to inspection Palpation: soft, not firm, no guarding, no hepatosplenomegaly, no masses and tender (Minimal left mid and left lower quadrant.) not in the epigastrum, not in the RLQ and not suprapubicly Auscultation: normal bowel sounds Skin General skin exam: no rashes or lesions noted Neuro General: alert and awake Cognition: normal cognition Speech: speech normal Gait: normal gait Motor: muscle tone normal throughout Sensory Exam: no sensory deficits noted Extrem General: normal to inspection, full ROM, normal capillary refill and no edema Psych Appearance: grossly normal Mental Status: mental status grossly normal Speech and Movement: speech and movement normal Affect: normal affect Thought Process: normal Course Vital Signs Temperature 97.7 F 06/02/18 10:57 Pulse 91 H 06/02/18 10:57 Respiratory Rate 18 06/02/18 10:57 Blood Pressure 160/58 H 06/02/18 10:57 Pulse Oximetry 98 06/02/18 10:57 Temperature 97.7 F 06/02/18 10:57 Temperature Source Temporal Artery Scan 06/02/18 10:57 Pulse 91 H 06/02/18 10:57 Respiratory Rate 18 06/02/18 10:57 Respiratory Effort Non-Labored 06/02/18 11:02 Blood Pressure 160/58 H 06/02/18 10:57 Blood Pressure Position Supine 06/02/18 10:57 Pulse Oximetry 98 06/02/18 10:57 Oxygen Delivery Method Room Air 06/02/18 10:57 Oxygen Flow Rate 0 06/02/18 10:57 Pain Level 7 06/02/18 10:57
[2018-06-02] MEDS: Normal Saline 250 ML 500 ML IV ×3 (12:05→14:20)
[2018-06-02 12:11] LABS: Abs Immature Grans 0.03 k/cumm (0.0-0.09); Absolute Basophil Count 0.04 k/cumm (0.0-0.2); Absolute Eosinophil Count 0.01 k/cumm (0.0-0.7); Absolute Lymphocyte Count 1.54 k/cumm (1.2-3.4); Absolute Monocyte Count 0.92 k/cumm (0.11-0.7); Absolute Neutrophil Count 6.98 k/cumm (1.2-6.7); Basophils % 0.4; Eosinophils % 0.1; HCT 45.7 % (36.0-46.0); HGB 15.3 g/dL (12.0-15.5); Immature Grans % 0.3; Lymphocytes % 16.2; Mean Corp. HGB Concentration 33.5 g/dL (32.0-36.0); Mean Corpuscular Hemoglobin 30.4 pg (27.0-33.0); Mean Corpuscular Volume 90.9 fL (80-95); Mean Platelet Volume 11.5 fL (8.0-11.0); Monocytes % 9.7; Neutrophils % 73.3; Platelet Count 143 x1000/uL (130-400); RBC 5.03 m/cumm (4.00-5.20); RBC Distribution Width 13.9 % (11.7-14.6); White Blood Cell Count 9.52 k/cumm (4.4-10.8)
[2018-06-02 12:33] LABS: Lipase 232 U/L (73-393); Magnesium 1.2 mg/dL (1.8-2.4)
[2018-06-02 12:39] LABS: ALT 97 U/L (12-78); AST 24 U/L (15-37); Albumin 3.7 g/dL (3.4-5.0); Alkaline Phosphatase 70 U/L (46-116); Anion Gap 11.5 mmol/L (3-11); BUN 28 mg/dL (7-18); Bilirubin, Total 1.1 mg/dL (0.2-1.0); CO2 28.5 mmol/L (21.0-32.0); CREATININE 2.21 mg/dL (0.55-1.02); Calcium 9.3 mg/dL (8.5-10.1); Chloride 98 mmol/L (98-107); Glucose 331 mg/dL (70-100); Potassium 3.4 mmol/L (3.5-5.1); Sodium 138 mmol/L (136-145); Total Protein 7.1 g/dL (6.4-8.2)
[2018-06-02 12:42] LABS: Troponin I 0.37 ng/mL (0.00-0.06)
[2018-06-02] MEDS: MAGNESIUM SULFATE 2 GM/50 ML BAG IVPB (13:47)
[2018-06-02 14:55] LABS: Bilirubin Negative (Negative); Blood Trace-intact (Negative); Clarity Clear; Glucose 500 mg/dL (Negative); Ketones Trace mg/dL (Negative); Leukocyte Esterase Negative (Negative); Nitrite Negative (Negative); Urobilinogen 0.2 EU/dL (Up TO 0.2)
[2018-06-02 15:09] LABS: Bacteria Rare HPF (Negative); C & S Indicated? No; Casts Negative LPF (Negative); Crystals Negative HPF (Negative); Epithelial Cells Few HPF (Negative); Mucus Negative (Negative); WBC 0-2 HPF (0-5)
[2018-06-02 16:59] LABS: Anion Gap 6.9 mmol/L (3-11); BUN 24 mg/dL (7-18); CO2 30.1 mmol/L (21.0-32.0); CREATININE 2.07 mg/dL (0.55-1.02); Calcium 8.1 mg/dL (8.5-10.1); Chloride 104 mmol/L (98-107); Estimated GFR 23.41 (mL/min/1.73m2); Glucose 278 mg/dL (70-100); Potassium 3.6 mmol/L (3.5-5.1); Sodium 141 mmol/L (136-145)
[2018-06-02 17:04] LABS: Troponin I 0.31 ng/mL (0.00-0.06)
--- NOTE | 2018-06-02 18:56 | HPE_ITS ---
Date of service: 06/02/18 Time of Service: 18:38 Assessment and Plan (1) Abdominal pain: Current visit: Yes Status: Acute Abdominal pain I have no specific diagnosis at this point absence of fever and leukocytosis along with negative CT is reassuring to a degree. (I do note the gallstone but it is hard to see that this could be the culprit lesion with pain in the left lower quadrant) I also notes some slight elevation in the ALT, new since last visit that this is unlikely to be the operative issue here. Likewise slight elevation in troponin is noted but again this would have to be considered incidental or at most secondary here to. Altogether I think I would just provide supportive measures at this point with IV fluids and as needed analgesics and antiemetics and see what evolves. We may want to have the surgeon take a look at the gallbladder but again I do not think that is the relevant issue here As to the diabetes will hold insulin until she is taking p.o. and cover with sliding scale. We will also hold diuretic as she does appear to be somewhat dehydrated. We will also trend out a final troponin Lastly let me note that the patient twice asked me whether this could be stress related certainly that is a possibility but that would be a diagnosis of exclusion History of Present Illness Chief Complaint: abdominal pain Narrative: Patient is a 72-year-old female who was seen approximately 10 days ago with left lower quadrant pain, nausea and vomiting (single episode of diarrhea as well) it was reported that there were some CT findings indicating colitis and she was sent home on Levaquin. She completed this course of antibiotics but returns to the emergency room tonight with persistent left lower quadrant pain. The pain has been more or less constant, non-radiating, and associated with multiple episodes of vomiting she has had no diarrhea. Indeed, she says she has not moved her bowels in 10 days, but is passing gas. She says that she has had no bowel movements because she has not been able to keep anything down. Initial evaluation of note for patient being afebrile, normal white count and CT showing no acute findings (note that there is a gallstone noted in the neck of the gallbladder. Also review of the initial CT I do not see any mention of findings indicative of colitis) patient was given dose of morphine and Phenergan and at the moment she says she feels entirely well. She was admitted for further evaluation. Please note the patient twice asked me whether her symptoms could be due to stress over the past month she has been dealing with new cancer diagnosis with her Past medical history: Chronic renal insufficiency, hyperlipidemia, coronary artery disease, depression, diabetes, gout, hypertension, sleep, status post aortic valve replacement, status post CABG Allergies multiple, please see appended list Medications: Allopurinol 200 at bedtime, aspirin 81 daily, Wellbutrin 150 twice daily, Celexa 20 at bedtime, Lantus 58 units daily (has not taken today) to Lopressor 25 daily, torsemide 50 daily Physical exam: Temp 36.5 blood pressure 117/91, pulse 63 respirations 14. HEENT is unremarkable, neck supple, lungs clear, heart regular rate and rhythm with 1/6 systolic murmur at the upper sternal border, abdomen is positive bowel sounds soft there is minimal left lower quadrant tenderness, no mass no rebound pelvic and rectal deferred extremities without edema neurological patient is alert and oriented moves all 4 extrema Laboratory White count 9.5 hematocrit 47 platelet 143 sodium 141 potassium 3.6 chloride 104 bicarb 30 BUN 24 creatinine 2.0 glucose 278 calcium 8.1 magnesium 1.2 total bili 1.1 AST 24 ALT 97 troponin I is 0.37 troponin II 0.31. U/A 3-5 RBC, 0-2 WBC EKG shows sinus rhythm with left bundle branch block pattern, CT as described above Review of Systems Review of Systems All systems reviewed & are unremarkable except as noted in HPI and below PFSH Medical History Chronic kidney disease (Acute) Hyperlipemia (Acute) Coronary artery disease (Chronic) Depression (Chronic) Diabetes (Chronic) Gout (Chronic) HTN (hypertension) (Chronic) Obstructive sleep apnea (Chronic) Surgical History H/O aortic valve replacement (Acute) Hx of CABG (Chronic) Triple Coronary bypass (~2012) aortic valve replacement (~2012) Family History Mother Breast cancer Social History Smoking/Tobacco Use Status: Never alcohol intake: never substance use type: does not use Female Reproductive History Menstrual Menopause type: natural History History 2 Para 2 Hx # Term Pregnancies 2 Multiple births Hx # Pregnancies Ectopic pregnancies AB induced Hx Number of Living Children AB spontaneous Meds Home Medications Medication Instructions Recorded Confirmed Type Lantus U-100 Insulin 58 units SUB-Q DAILY 09/24/12 06/02/18 History Novolog Flexpen U-100 Insulin 0 units SUB-Q TID 09/24/12 06/02/18 History aspirin [Ecotrin Low Strength] 81 mg PO DAILY 07/27/13 06/02/18 History metoprolol succinate 25 mg PO DAILY 07/27/13 06/02/18 History torsemide 50 mg PO DAILY 01/16/14 06/02/18 History allopurinol 200 mg PO QPM 10/23/16 06/02/18 History acetaminophen [Tylenol] 650 mg PO Q6H PRN PRN #90 tab 10/25/16 06/02/18 Rx ascorbic acid (vitamin C) 500 mg PO DAILY #90 tab 10/25/16 06/02/18 Rx bupropion HCl [Wellbutrin SR] 150 mg PO BID 10/25/16 06/02/18 History citalopram [Celexa] 20 mg PO QPM 10/25/16 06/02/18 History vitamin E 400 unit PO DAILY #90 cap 10/25/16 06/02/18 Rx multivitamin tablet 1 tab PO DAILY 02/23/18 06/02/18 History turmeric root extract 500 mg 500 mg PO DAILY 02/23/18 06/02/18 History capsule levofloxacin 750 mg PO DAILY #5 tab 05/26/18 06/02/18 Rx oxycodone 5 mg PO Q6H PRN #10 tab 05/26/18 06/02/18 Rx Allergies Allergy/AdvReac Type Severity Reaction Status Date / Time ciprofloxacin [From Cipro] Allergy Severe Itching Verified 06/02/18 11:03 ciprofloxacin HCl Allergy Severe Verified 06/02/18 11:03 [From Cipro] latex Allergy Severe Itching Verified 06/02/18 11:03 mupirocin [From Bactroban] Allergy Severe Verified 06/02/18 11:03 mupirocin calcium Allergy Severe Verified 06/02/18 11:03 [From Bactroban] Penicillins Allergy Severe Anaphylaxsi Verified 06/02/18 11:03 s sulfamethoxazole Allergy Intermediate Skin Rash Verified 06/02/18 11:03 [From Septra] trimethoprim [From Septra] Allergy Intermediate Skin Rash Verified 06/02/18 11:03 ranitidine HCl [From Zantac] Allergy Unknown Verified 06/02/18 11:03 cephalexin monohydrate AdvReac Intermediate Itching Verified 06/02/18 11:03 [From Keflex] clindamycin AdvReac Intermediate Nausea Verified 06/02/18 11:03 repaglinide [From Prandin] AdvReac Intermediate myalgia Verified 06/02/18 11:03 simvastatin AdvReac Intermediate myalgia Verified 06/02/18 11:03 Exam Narrative Exam Narrative: per HPI Results Labs : 06/02/18 11:56 06/02/18 16:11 Laboratory Results - last 24 hr 06/02/18 06/02/18 06/02/18 11:56 11:56 11:56 WBC 9.52 RBC 5.03 Hgb 15.3 Hct 45.7 MCV 90.9 MCH 30.4 MCHC 33.5 RDW 13.9 Plt Count 143 MPV 11.5 H Immature Gran % 0.3 Neutrophils % 73.3 Lymphocytes % 16.2 Monocytes % 9.7 Eosinophils % 0.1 Basophils % 0.4 Absolute Neutrophils 6.98 H Absolute Lymphocytes 1.54 Absolute Monocytes 0.92 H Absolute Eosinophils 0.01 Absolute Basophils 0.04 Sodium 138 Potassium 3.4 L Chloride 98 Carbon Dioxide 28.5 Anion Gap 11.5 H BUN 28 H Creatinine 2.21 H Estimated GFR/1.73 m2 21.70 Glucose 331 H Calcium 9.3 Magnesium 1.2 L Total Bilirubin 1.1 H AST 24 ALT 97 H Alkaline Phosphatase 70 Troponin I 0.37 H Total Protein 7.1 Albumin 3.7 Lipase 232 Urine Color Urine Clarity Urine pH Ur Specific [place] Urine Protein Urine Ketones Urine Blood Urine Nitrite Urine Bilirubin Urine Urobilinogen Ur Leukocyte Esterase Urine RBC Urine WBC Ur Epithelial Cells Urine Crystals Urine Bacteria Urine Casts Urine Mucus Ur Culture Indicated? Urine Glucose 06/02/18 06/02/18 14:35 16:11 WBC RBC Hgb Hct MCV MCH MCHC RDW Plt Count MPV Immature Gran % Neutrophils % Lymphocytes % Monocytes % Eosinophils % Basophils % Absolute Neutrophils Absolute Lymphocytes Absolute Monocytes Absolute Eosinophils Absolute Basophils Sodium 141 Potassium 3.6 Chloride 104 Carbon Dioxide 30.1 Anion Gap 6.9 BUN 24 H Creatinine 2.07 H Estimated GFR/1.73 m2 23.41 Glucose 278 H Calcium 8.1 L Magnesium Total Bilirubin AST ALT Alkaline Phosphatase Troponin I 0.31 H Total Protein Albumin Lipase Urine Color Yellow Urine Clarity Clear Urine pH 7.0 Ur Specific [place] 1.010 Urine Protein Negative Urine Ketones Trace H Urine Blood Trace-intact H Urine Nitrite Negative Urine Bilirubin Negative Urine Urobilinogen 0.2 Ur Leukocyte Esterase Negative Urine RBC 3-5 H Urine WBC 0-2 Ur Epithelial Cells Few Urine Crystals Negative Urine Bacteria Rare Urine Casts Negative Urine Mucus Negative Ur Culture Indicated? No Urine Glucose 500 H Last Vital Signs Temp 36.5 C 06/02/18 10:57 Pulse 63 06/02/18 17:16 Resp 14 06/02/18 17:16 BP 117/91 H 06/02/18 17:16 Pulse Ox 95 06/02/18 17:16
[2018-06-02] MEDS: Lactated Ringers 1,000 ML 125 ML IV (19:46)
[2018-06-02] MEDS: Allopurinol 100 MG TAB 200 MG PO (21:10)
[2018-06-02] MEDS: Citalopram 20 MG TAB PO (21:11)
[2018-06-02 21:34] LABS: Troponin I 0.29 ng/mL (0.00-0.06)
--- NOTE | 2018-06-02 22:46 | NUR.NOTE ---
Patient was transported from the Emergency Room to the unit by ZOFIA Daniels. She voiced 3/10 pain to the left side. Patient gave history of vomiting with abdominal pain for the past 10 days. On assessment she is conscious alert, rational, oriented x 3. On ascultation, diminished lung sounds heard especially to the left anterior of chest. Well healed scar noted to the center of her chest. Abdomen obese and tender, guarding noted when about to palpated to the left side. Good muscle strength exhibited by patient. IV access to the right AC progressing with Lactated Ringer progressing at 125ml/hr. patient placed comfortable in bed oriented to the room and all the features of bed and calling light.
--- NOTE | 2018-06-02 22:57 | NUR.NOTE ---
Nursing Note: prior to admission reviewed pt orders for no telemetry w/trop elevation- will be admitted w/o telemetry ER doctor to order 3rd troponin prior to admission.
[2018-06-03] MEDS: Normal Saline Flush 10 ML SYR IVP ×4 (00:17→17:19)
[2018-06-03 00:42] VITALS: BP 99/68; PULSE 67; RESP 17; TEMP 36.5; O2SAT 96
[2018-06-03] MEDS: Lactated Ringers 1,000 ML 125 ML IV ×2 (04:47→13:19)
[2018-06-03 07:30] LABS: ALT 63 U/L (12-78); BUN 22 mg/dL (7-18); CREATININE 1.75 mg/dL (0.55-1.02); Chloride 104 mmol/L (98-107); Estimated GFR 28.41 (mL/min/1.73m2); Potassium 3.4 mmol/L (3.5-5.1); Sodium 141 mmol/L (136-145)
[2018-06-03 07:55] VITALS: O2SAT 96
[2018-06-03] MEDS: Metoprolol CR 25 MG TABCR PO (08:18)
[2018-06-03] MEDS: Aspirin E.C. 81 MG TABEC PO (08:18)
[2018-06-03] MEDS: buPROPion-CR 150 MG TABCR PO (08:18)
[2018-06-03 08:21] VITALS: BP 151/74; PULSE 83; RESP 20; TEMP 36.9; O2SAT 96
--- NOTE | 2018-06-03 09:34 | PDOC.CMIN ---
Care Management Initial Assess REASON FOR HOSPITALIZATION:: Abdominal Pain PAST MEDICAL HISTORY/PAST SURGICAL HISTORY:: Chronic renal insufficiency, CKD, HTN, LAWRENCE, hyperlipidemia, coronary artery disease, depression, diabetes, gout, hypertension, sleep, status post aortic valve replacement, status post CABG, triple coronary bypass PREVIOUS FUNCTIONAL STATUS/SOCIAL/FAMILY SUPPORTS:: Marguerite resides in [place], [place] with her , Jaquan. They couple has two adult children; Rosana who resides in [place], [place] and Klever who resides in [place] and four grandchildren. 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 Marguerite shares that her recently had surgery for bladder cancer and is recovering well at home with the support of [facility] services. She shares her neighbor and friend, Sulma Gunn is helping with transportation and tasks around the home including feeding their chickens. She reports speaking in depth with her and family regarding current self care needs and living out in the [facility] and reports the consensus was that they are still managing well and feel confident with caring for themselves alone in their home setting. In the event Marguerite had a change in circumstance and baseline functioning she does share that her and Jaquan would need to re-evaluate their situation. She feels confident they will both be back on their feet and driving within a few weeks time. CURRENT FUNCTIONAL STATUS:: Marguerite is lying in bed when meets with her. She is forthcoming with information and pleasant in interaction. She reports her pain is currently well managed. ADVANCE DIRECTIVES:: None on file at [facility]. Patient reports her PCP, Dr. Magdiel Weeks has AD on file. 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 PRIMARY CARE PHYSICIAN:: Dr. Trent Weeks POTENTIAL DISCHARGE NEEDS:: Follow up appointment with PCP. PATIENT/FAMILY EDUCATION NEEDS:: Review of discharge instructions, discuss self care needs Ask Me Three upon discharge. ANTICIPATED BARRIERS TO DISCHARGE:: None identified. TRANSPORTATION:: Via private vehicle with her , Jaquan. PLAN:: Marguerite will discharge home when ready per MD. She will follow up with her PCP and plan of care as prescribed. She will transport via private vehicle with her , Jaquan or neighbor; Sulma.
--- NOTE | 2018-06-03 10:02 | INITIAL_ITS ---
Care Management Initial Assess REASON FOR HOSPITALIZATION:: Abdominal Pain PAST MEDICAL HISTORY/PAST SURGICAL HISTORY:: Chronic renal insufficiency, CKD, HTN, LAWRENCE, hyperlipidemia, coronary artery disease, depression, diabetes, gout, hypertension, sleep, status post aortic valve replacement, status post CABG, triple coronary bypass PREVIOUS FUNCTIONAL STATUS/SOCIAL/FAMILY SUPPORTS:: Marguerite resides in [place], [place] with her , Jaquan. They couple has two adult children; Rosana who resides in [place], [place] and Klever who resides in [place] and four grandchildren. 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 Marguerite shares that her recently had surgery for bladder cancer and is recovering well at home with the support of [facility] services. She shares her neighbor and friend, Sulma Gunn is helping with transportation and tasks around the home including feeding their chickens. She reports speaking in depth with her and family regarding current self care needs and living out in the [facility] and reports the consensus was that they are still managing well and feel confident with caring for themselves alone in their home setting. In the event Marguerite had a change in circumstance and baseline functioning she does share that her and Jaquan would need to re-evaluate their situation. She feels confident they will both be back on their feet and driving within a few weeks time. CURRENT FUNCTIONAL STATUS:: Marguerite is lying in bed when meets with her. She is forthcoming with information and pleasant in interaction. She reports her pain is currently well managed. ADVANCE DIRECTIVES:: None on file at [facility]. Patient reports her PCP, Dr. Magdiel Weeks has AD on file. 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 PRIMARY CARE PHYSICIAN:: Dr. Trent Weeks POTENTIAL DISCHARGE NEEDS:: Follow up appointment with PCP. PATIENT/FAMILY EDUCATION NEEDS:: Review of discharge instructions, discuss self care needs Ask Me Three upon discharge. ANTICIPATED BARRIERS TO DISCHARGE:: None identified. TRANSPORTATION:: Via private vehicle with her , Jaquan. PLAN:: Marguerite will discharge home when ready per MD. She will follow up with her PCP and plan of care as prescribed. She will transport via private vehicle with her , Jaquan or neighbor; Sulma.
[2018-06-03 10:12] LABS: Magnesium 1.7 mg/dL (1.8-2.4)
[2018-06-03] MEDS: Potassium Chloride 20 MEQ TABCR 40 MEQ PO (10:25)
[2018-06-03] MEDS: Insulin Glargine 300 UNITS/3 ML PEN 58 UNITS SC (13:11)
[2018-06-03] MEDS: Magnesium Chloride 64 MG TABCR PO (13:14)
--- NOTE | 2018-06-03 16:01 | PHARADMIT ---
Addendum entered by Claude Pillai III 06/04/18 16:25: Pharmacy Note Subjective Chest X-Ray today< (no changes) MD not sure what is going at this point. No acute infectious process, not colitis. Objective VS-OK pain:09/02 Lytes, H&H, WBC-OK SCr- 1.82 Plts- 113 FS/BG-137/207 Wgt-116.9kg (up) No BM Assessment Tramadol ordered for pain. ASpart & Lantus ordered Plan No MD note yet, patient will changed to acute stay if not discharged Original Note: Admission Pharmacy Clinical Review ABDOMINAL PAIN Code Status Full Code Current Weight Wgt-113.5 kg Renally Cleared and Narrow Therapeutic Index Meds CrCl~ 27.4 mL/min Meds-OK QTc Value / Action Taken QTc-451 NA BP Control, Fever BP- 151/74 Tmax- 36.9C Electrolytes reviewed Na- 141 K+3.4 Mag-1. DVT Prophylaxis ASA, Opiate Usage / Scheduled Bowel Regimen Ordered Yes No Plt/SCr for Heparin / Enoxaparin Plts-143 SCr-1.75 INR for Warfarin na H/H stable, WBC/Bands H&H- 15.3/45.7 WBC- 9.52 Antibiotic appropriateness none Cultures and Sensitivities none Surgical ABX d/c within 24 hr na DM control / Insulin Dosing BG-278 Aspart, Lantus Heart Failure (Check EF%) (GUILLE's, B-Block, Diuretics) Toprol-XL, IV to PO Switch No Home Meds Reviewed Yes Home Meds Not Ordered Vit-C & E, Levaquiin, M-vites, Oxycodone, Torsemide, Tumeric Root Comments Troponin- 0.37 ^ 0.31 ^ 0.29 ^ 0.20
--- NOTE | 2018-06-03 16:30 | SCONE_ITS ---
Date of service: 06/03/18 Time of Service: 16:24 Assessment and Plan (1) Abdominal pain: Start date: 06/03/18 Start time: 16:27 Current visit: Yes Status: Acute poss a residual from her colitis she has no white count and her ct is normal she did have diarrhea and now claims to not have a bm since 05/23, the ct does not appear to be FOS concerned about her medical problem diabetes and renal insufficiency believe this is viral in nature and not asurgical issue History of Present Illness Chief Complaint: lrft upper quadrant pain Narrative: pt had colitis a few weeks ago Review of Systems Review of Systems All systems reviewed & are unremarkable except as noted in HPI and below Constitutional Reports as per HPI Gastrointestinal Reports as per HPI, Reports abdominal pain (LUQ), Reports change in bowel habit s, Reports nausea and Reports vomiting PFSH Medical History Chronic kidney disease (Acute) Hyperlipemia (Acute) Coronary artery disease (Chronic) Depression (Chronic) Diabetes (Chronic) Gout (Chronic) HTN (hypertension) (Chronic) Obstructive sleep apnea (Chronic) Surgical History H/O aortic valve replacement (Acute) Hx of CABG (Chronic) Triple Coronary bypass (~2012) aortic valve replacement (~2012) Family History Mother Breast cancer Social History Smoking/Tobacco Use Status: Never alcohol intake: never substance use type: does not use Female Reproductive History Menstrual Menopause type: natural History History 2 Para 2 Hx # Term Pregnancies 2 Multiple births Hx # Pregnancies Ectopic pregnancies AB induced Hx Number of Living Children AB spontaneous Exam Const General: cooperative Nutritional Appearance: overweight Orientation: alert, awake and oriented x3 GI Inspection: normal to inspection Palpation: soft Auscultation: normal bowel sounds Abdomen image: 1. min tenderness to percussion Results Last Vital Signs Temp 36.9 C 06/03/18 08:21 Pulse 83 06/03/18 08:21 Resp 20 06/03/18 08:21 BP 151/74 H 06/03/18 08:21 Pulse Ox 96 06/03/18 08:21 Labs : 06/02/18 11:56 06/03/18 06:15 Laboratory Results - last 24 hr 06/02/18 06/02/18 06/03/18 16:11 20:46 06:15 Sodium 141 141 Potassium 3.6 3.4 L Chloride 104 104 Carbon Dioxide 30.1 31.0 Anion Gap 6.9 6.0 BUN 24 H 22 H Creatinine 2.07 H 1.75 H Estimated GFR/1.73 m2 23.41 28.41 Glucose 278 H Calcium 8.1 L Magnesium 1.7 L ALT 63 Troponin I 0.31 H 0.29 H 06/03/18 06:15 Sodium Potassium Chloride Carbon Dioxide Anion Gap BUN Creatinine Estimated GFR/1.73 m2 Glucose Calcium Magnesium ALT Troponin I 0.20 H
[2018-06-03 16:41] VITALS: BP 152/69; PULSE 78; TEMP 36.6; O2SAT 96
[2018-06-03] MEDS: Insulin Aspart 300 UNITS/3 ML PEN SC (17:05)
[2018-06-03] MEDS: Citalopram 20 MG TAB PO (19:51)
[2018-06-03] MEDS: Allopurinol 100 MG TAB 200 MG PO (19:51)
--- NOTE | 2018-06-03 20:38 | PGE_ITS ---
Date of Service Date of service: 06/03/18 Time of Service: 15:45 Assessment and Plan (1) Abdominal pain: Current visit: Yes Status: Acute Etiology is truly unclear. There does not appear to be colitis on CT/any acute infectious process, and there do not appear to be any surgical issues. Continue clear liquids, pain control, advance diet as tolerated. (2) Insulin-requiring or dependent type II diabetes mellitus: Current visit: No Status: Acute The patient refuses aspart because it drops her blood sugar. Continue long acting insulin. outreach educator consulted. (3) CHF (congestive heart failure): Current visit: Yes Status: Chronic Acute on chronic - crackles heard. D/c IVF. (4) Diabetic nephropathy: Current visit: No Status: Acute JAMES on CKD, likely in light of dehydration and uncontrolled diabetes. Monitor Cr. Patient resistant to let us control her BG. (5) Hypertension: Current visit: Yes Status: Chronic Essential, uncontrolled. D/C IVF and monitor. (6) Discharge planning issues: Current visit: Yes Status: Acute Full code (7) DVT prophylaxis: Current visit: Yes Status: Acute Subjective Interval history since last seen: Complains of stabbing LUQ/L flank pain. No nausea/vomiting today. Denies dizziness, chest pain, shortness of breath. No BM for several days, has no desire to have a BM. Exam Narrative Exam Narrative: General: A&OX3, anxious obese female HEENT: EOMI, MMM Heart: RRR, systolic ejection murmur Lungs: Crackles at B bases GI: abdomen soft, possibly mildly tender in LUQ Extremities; no e/c/c BLE's Objective Objective Clinical Data: Abnormal lab results 06/02/18 06/03/18 06/03/18 Range/Units 20:46 06:15 06:15 Potassium 3.4 L (3.5-5.1) mmol/L BUN 22 H (7-18) mg/dL Creatinine 1.75 H (0.55-1.02) mg/dL Magnesium 1.7 L (1.8-2.4) mg/dL Troponin I 0.29 H 0.20 H (0.00-0.06) ng/mL Vital Signs Temperature 36.6 C 06/03/18 16:41 Temperature Source Tympanic 06/03/18 16:41 Pulse 78 06/03/18 16:41 Pulse Rhythm Regular 06/03/18 17:25 Pulse 62 06/02/18 20:31 Respiratory Rate 20 06/03/18 08:21 Respiratory Effort Non-Labored 06/03/18 17:25 Respiratory Depth Normal 06/03/18 09:30 Respiratory Pattern Normal 06/03/18 09:30 Blood Pressure 152/69 H 06/03/18 16:41 Blood Pressure Mean 80 06/02/18 20:30 Blood Pressure Position Supine 06/02/18 10:57 Pulse Oximetry 96 06/03/18 16:41 Oxygen Delivery Method Room Air 06/03/18 16:41 Oxygen Flow Rate 0 06/03/18 16:41 Pain Level 3 06/03/18 17:19 Comment 06/03/18 16:41 Intake & Output 06/02/18 06/03/18 06/03/18 23:59 11:59 23:59 Intake Total 801 / 801 1530 / 2890 1360 / 2890 Output Total 800 / 1100 300 / 1100 Balance 801 / 801 730 / 1790 1060 / 1790 Weight 110.9 kg 113.5 kg Intake: IV 801 / 801 1000 / 2000 1000 / 2000 Oral 530 / 890 360 / 890 Output: Urine 800 / 1100 300 / 1100 Other: Urine Color Straw Straw Urine Appearance Cloudy Clear Urine Odor Normal None Comment voiding in toilet w/o difficulty Voiding Methods Toilet Toilet Laboratory Results WBC 9.52 k/cumm (4.4-10.8) 06/02/18 11:56 RBC 5.03 m/cumm (4.00-5.20) 06/02/18 11:56 Hgb 15.3 g/dL (12.0-15.5) 06/02/18 11:56 Hct 45.7 % (36.0-46.0) 06/02/18 11:56 MCV 90.9 fL (80-95) 06/02/18 11:56 MCH 30.4 pg (27.0-33.0) 06/02/18 11:56 MCHC 33.5 g/dL (32.0-36.0) 06/02/18 11:56 RDW 13.9 % (11.7-14.6) 06/02/18 11:56 Plt Count 143 x1000/uL (130-400) 06/02/18 11:56 MPV 11.5 fL (8.0-11.0) H 06/02/18 11:56 Immature Gran % 0.3 06/02/18 11:56 Neutrophils % 73.3 06/02/18 11:56 Lymphocytes % 16.2 06/02/18 11:56 Monocytes % 9.7 06/02/18 11:56 Eosinophils % 0.1 06/02/18 11:56 Basophils % 0.4 06/02/18 11:56 Absolute Neutrophils 6.98 k/cumm (1.2-6.7) H 06/02/18 11:56 Absolute Lymphocytes 1.54 k/cumm (1.2-3.4) 06/02/18 11:56 Absolute Monocytes 0.92 k/cumm (0.11-0.7) H 06/02/18 11:56 Absolute Eosinophils 0.01 k/cumm (0.0-0.7) 06/02/18 11:56 Absolute Basophils 0.04 k/cumm (0.0-0.2) 06/02/18 11:56 Sodium 141 mmol/L (136-145) 06/03/18 06:15 Potassium 3.4 mmol/L (3.5-5.1) L 06/03/18 06:15 Chloride 104 mmol/L (98-107) 06/03/18 06:15 Carbon Dioxide 31.0 mmol/L (21.0-32.0) 06/03/18 06:15 Anion Gap 6.0 mmol/L (3-11) 06/03/18 06:15 BUN 22 mg/dL (7-18) H 06/03/18 06:15 Creatinine 1.75 mg/dL (0.55-1.02) H 06/03/18 06:15 Estimated GFR/1.73 m2 28.41 (mL/min/1.73m2) 06/03/18 06:15 Glucose 278 mg/dL (70-100) H 06/02/18 16:11 Calcium 8.1 mg/dL (8.5-10.1) L 06/02/18 16:11 Magnesium 1.7 mg/dL (1.8-2.4) L 06/03/18 06:15 Total Bilirubin 1.1 mg/dL (0.2-1.0) H 06/02/18 11:56 AST 24 U/L (15-37) 06/02/18 11:56 ALT 63 U/L (12-78) 06/03/18 06:15 Alkaline Phosphatase 70 U/L (46-116) 06/02/18 11:56 Troponin I 0.20 ng/mL (0.00-0.06) H 06/03/18 06:15 Total Protein 7.1 g/dL (6.4-8.2) 06/02/18 11:56 Albumin 3.7 g/dL (3.4-5.0) 06/02/18 11:56 Lipase 232 U/L (73-393) 06/02/18 11:56 Urine Color Yellow (Yellow) 06/02/18 14:35 Urine Clarity Clear 06/02/18 14:35 Urine pH 7.0 (5-8) 06/02/18 14:35 Ur Specific [place] 1.010 (1.005-1.025) 06/02/18 14:35 Urine Protein Negative mg/dL (Negative) 06/02/18 14:35 Urine Ketones Trace mg/dL (Negative) H 06/02/18 14:35 Urine Blood Trace-intact (Negative) H 06/02/18 14:35 Urine Nitrite Negative (Negative) 06/02/18 14:35 Urine Bilirubin Negative (Negative) 06/02/18 14:35 Urine Urobilinogen 0.2 EU/dL (Up TO 0.2) 06/02/18 14:35 Ur Leukocyte Esterase Negative (Negative) 06/02/18 14:35 Urine RBC 3-5 (0-2) H 06/02/18 14:35 Urine WBC 0-2 HPF (0-5) 06/02/18 14:35 Ur Epithelial Cells Few HPF (Negative) 06/02/18 14:35 Urine Crystals Negative HPF (Negative) 06/02/18 14:35 Urine Bacteria Rare HPF (Negative) 06/02/18 14:35 Urine Casts Negative LPF (Negative) 06/02/18 14:35 Urine Mucus Negative (Negative) 06/02/18 14:35 Ur Culture Indicated? No 06/02/18 14:35 Urine Glucose 500 mg/dL (Negative) H 06/02/18 14:35
[2018-06-04 04:31] VITALS: BP 153/65; PULSE 75; RESP 18; TEMP 37; O2SAT 98
[2018-06-04] MEDS: Normal Saline Flush 10 ML SYR IVP (06:45)
[2018-06-04 07:35] VITALS: BP 143/58; PULSE 67; RESP 18; TEMP 37; O2SAT 97
[2018-06-04] MEDS: Insulin Glargine 300 UNITS/3 ML PEN 58 UNITS SC (08:40)
[2018-06-04] MEDS: Enoxaparin 30 MG/0.3 ML SYR SC (08:41)
[2018-06-04] MEDS: Insulin Aspart 300 UNITS/3 ML PEN SC (08:41)
[2018-06-04] MEDS: Magnesium Chloride 64 MG TABCR PO (08:43)
[2018-06-04] MEDS: Acetaminophen 325 MG TAB 650 MG PO ×3 (08:45→23:13)
[2018-06-04] MEDS: Metoprolol CR 25 MG TABCR PO (08:45)
[2018-06-04] MEDS: traMADol 50 MG TAB PO ×2 (08:45→23:13)
[2018-06-04] MEDS: buPROPion-CR 150 MG TABCR PO (08:45)
[2018-06-04] MEDS: Aspirin E.C. 81 MG TABEC PO (08:45)
[2018-06-04 09:36] LABS: Lactate-non-spesis 0.9 mmol/L (0.6-1.4)
[2018-06-04 11:47] LABS: Abs Immature Grans 0.02 k/cumm (0.0-0.09); Absolute Basophil Count 0.03 k/cumm (0.0-0.2); Absolute Eosinophil Count 0.03 k/cumm (0.0-0.7); Absolute Lymphocyte Count 1.88 k/cumm (1.2-3.4); Absolute Monocyte Count 0.91 k/cumm (0.11-0.7); Absolute Neutrophil Count 3.85 k/cumm (1.2-6.7); Basophils % 0.4; Eosinophils % 0.4; HCT 36.6 % (36.0-46.0); HGB 11.9 g/dL (12.0-15.5); Immature Grans % 0.3; Mean Corp. HGB Concentration 32.5 g/dL (32.0-36.0); Mean Corpuscular Hemoglobin 30.8 pg (27.0-33.0); Mean Corpuscular Volume 94.8 fL (80-95); Mean Platelet Volume 11.8 fL (8.0-11.0); Monocytes % 13.5; Neutrophils % 57.4; Platelet Count 113 x1000/uL (130-400); RBC 3.86 m/cumm (4.00-5.20); RBC Distribution Width 13.8 % (11.7-14.6); White Blood Cell Count 6.72 k/cumm (4.4-10.8)
[2018-06-04 11:56] LABS: ALT 56 U/L (12-78); AST 25 U/L (15-37); Albumin 2.8 g/dL (3.4-5.0); Alkaline Phosphatase 51 U/L (46-116); Anion Gap 9.2 mmol/L (3-11); BUN 21 mg/dL (7-18); Bilirubin, Direct 0.16 mg/dL (0.00-0.20); Bilirubin, Total 0.5 mg/dL (0.2-1.0); CO2 26.8 mmol/L (21.0-32.0); CREATININE 1.82 mg/dL (0.55-1.02); Calcium 8.3 mg/dL (8.5-10.1); Chloride 104 mmol/L (98-107); Estimated GFR 27.16 (mL/min/1.73m2); Glucose 207 mg/dL (70-100); Magnesium 1.8 mg/dL (1.8-2.4); Potassium 4.1 mmol/L (3.5-5.1); Sodium 140 mmol/L (136-145); Total Protein 5.1 g/dL (6.4-8.2)
--- NOTE | 2018-06-04 13:26 | DI.RAD_ITS ---
SYMPTOMS/DIAGNOSIS: ? CHF PA AND LATERAL CHEST: Comparison is made with [id number]. The heart is enlarged, unchanged. Sternal wires and mediastinal clips are again noted. There are mild underlying fibrotic changes. No definite pulmonary edema is seen. There is no evidence of focal infiltrate or effusion. IMPRESSION: Cardiomegaly. No acute abnormality.
--- NOTE | 2018-06-04 14:46 | PDOC.CMPRO ---
- If Service Date Differs Date of service: 06/04/18 Time of Service: 14:47 Care Management Progress Note S/O: Marguerite is lying in bed this morning, she is receptive to discussion. LEON contacted Barbra, [facility] CCC, in regards to Marguerite's history with [facility]. Barbra states that she has not worked with Marguerite and that it appears that she is seen infrequently at [facility]. notified Dr. Brooks in regards to the above who will meet with Marguerite this afternoon. A: 72 y/o female admitted 06/02/18 for abdominal pain P: Marguerite is an observation patient and LEON notified Dr. Brooks that Marguerite would have to change to an acute patient today if not discharged. Marguerite will return home with no services, she will F/U with PCP and plan of care as prescribed. Her Jaquan will transport her when ready.
--- NOTE | 2018-06-04 14:57 | CMPROGNOTE_ITS ---
- If Service Date Differs Date of service: 06/04/18 Time of Service: 14:47 Care Management Progress Note S/O: Marguerite is lying in bed this morning, she is receptive to discussion. LEON contacted Barbra, [facility], in regards to Marguerite's history with [facility]. Barbra states that she has not worked with Marguerite and that it appears that she is seen infrequently at [facility]. notified Dr. Brooks in regards to the above who will meet with Marguerite this afternoon. A: 72 y/o female admitted 06/02/18 for abdominal pain P: Marguerite is an observation patient and LEON notified Dr. Brooks that Marguerite would have to change to an acute patient today if not discharged. Marguerite will return home with no services, she will F/U with PCP and plan of care as prescribed. Her Jaquan will transport her when ready.
[2018-06-04 16:00] VITALS: BP 132/82; PULSE 67; RESP 20; TEMP 36.9; O2SAT 99
--- NOTE | 2018-06-04 18:19 | W.INDIABCONS ---
Date of service: 06/04/18 Time of Service: 18:19 Diabetes Inpatient Consult DESCRIPTION/ASSESSMENT: Appreciate diabetes consult for Marguerite Escalante who is well known to diabetes outpatient services. She also has renal disease with GFR 29. She has a current A1c 7.3 which she states is high due to stress with her 's illness. She is here for ongoing nausea and vomiting of unknown etiology. Marguerite manages her diabetes at home with basal and bolus insulin which she manages independently to determine mealtime dosing. Visited with Marguerite who feels frustration that we do not manage blood sugars as she does at home, but she is resigned to accept this. She expresses dismay that she did not receive basal insulin the day of admission. Blood sugars here yesterday 235-298, today 116-176 taking 58u basal and moderate insulin correction. INTERVENTION: No intervention suggested at this time. She believes hyperglycemia is caused by her illness and this is resolving. PLAN: Will follow blood sugars. She knows to contact us when she feels the need for diabetes support. Time Spent in Nutritional Counseling and Treatment: 20 minutes with inpatient
--- NOTE | 2018-06-04 19:08 | W.PM.PROGNOT ---
Date of Service Date of service: 06/04/18 Time of Service: 16:30 Subjective Interval history since last seen: When I attempted to see the patient, she was on the phone and stated (in a loud voice) that she is too busy right now to talk to me. I politely left the room without examining her. Nursing reports that the patient has not been compliant with her dietary choices, requesting high carbohydrate foods. She is refusing aspart. Given her hyperglycemia, another cause for her abdominal pain, nausea, and vomiting could be gastroparesis. Incidentally, her nausea and vomiting have now resolved. She is NPO after midnight for a gastric emptying study tomorrow. Objective Objective Clinical Data: Abnormal lab results 06/04/18 06/04/18 Range/Units 09:30 09:30 RBC 3.86 L (4.00-5.20) m/cumm Hgb 11.9 L D (12.0-15.5) g/dL Plt Count 113 L (130-400) x1000/uL MPV 11.8 H (8.0-11.0) fL Absolute Monocytes 0.91 H (0.11-0.7) k/cumm BUN 21 H (7-18) mg/dL Creatinine 1.82 H (0.55-1.02) mg/dL Glucose 207 H (70-100) mg/dL Calcium 8.3 L (8.5-10.1) mg/dL Total Protein 5.1 L (6.4-8.2) g/dL Albumin 2.8 L (3.4-5.0) g/dL Vital Signs Temperature 36.9 C 06/04/18 16:00 Temperature Source Tympanic 06/04/18 16:00 Pulse 67 06/04/18 16:00 Pulse Rhythm Regular 06/04/18 16:30 Pulse 62 06/02/18 20:31 Respiratory Rate 20 06/04/18 16:00 Respiratory Effort Non-Labored 06/04/18 16:30 Respiratory Depth Normal 06/04/18 16:30 Respiratory Pattern Normal 06/04/18 16:30 Blood Pressure 132/82 06/04/18 16:00 Blood Pressure Mean 80 06/02/18 20:30 Blood Pressure Position Supine 06/02/18 10:57 Pulse Oximetry 99 06/04/18 16:00 Oxygen Delivery Method Room Air 06/04/18 16:00 Oxygen Flow Rate 0 06/04/18 16:00 Pain Level 0 06/04/18 16:00 Comment 06/03/18 16:41 Intake & Output 06/03/18 06/04/18 06/04/18 23:59 11:59 23:59 Intake Total 2391 / 3921 370 / 610 240 / 610 Output Total 300 / 1100 300 / 300 Balance 2091 / 2821 70 / 310 240 / 310 Weight 116.9 kg Intake: IV 2031 / 3031 Oral 360 / 890 360 / 600 240 / 600 Output: Urine 300 / 1100 300 / 300 Other: Urine Color Straw Yellow Urine Appearance Clear Clear Clear Urine Odor None Comment voiding w/o difficulty independently Pt voids independently. Voiding Methods Toilet Toilet Laboratory Results WBC 6.72 k/cumm (4.4-10.8) 06/04/18 09:30 RBC 3.86 m/cumm (4.00-5.20) L 06/04/18 09:30 Hgb 11.9 g/dL (12.0-15.5) L D 06/04/18 09:30 Hct 36.6 % (36.0-46.0) 06/04/18 09:30 MCV 94.8 fL (80-95) 06/04/18 09:30 MCH 30.8 pg (27.0-33.0) 06/04/18 09:30 MCHC 32.5 g/dL (32.0-36.0) 06/04/18 09:30 RDW 13.8 % (11.7-14.6) 06/04/18 09:30 Plt Count 113 x1000/uL (130-400) L 06/04/18 09:30 MPV 11.8 fL (8.0-11.0) H 06/04/18 09:30 Immature Gran % 0.3 06/04/18 09:30 Neutrophils % 57.4 06/04/18 09:30 Lymphocytes % 28.0 06/04/18 09:30 Monocytes % 13.5 06/04/18 09:30 Eosinophils % 0.4 06/04/18 09:30 Basophils % 0.4 06/04/18 09:30 Absolute Neutrophils 3.85 k/cumm (1.2-6.7) 06/04/18 09:30 Absolute Lymphocytes 1.88 k/cumm (1.2-3.4) 06/04/18 09:30 Absolute Monocytes 0.91 k/cumm (0.11-0.7) H 06/04/18 09:30 Absolute Eosinophils 0.03 k/cumm (0.0-0.7) 06/04/18 09:30 Absolute Basophils 0.03 k/cumm (0.0-0.2) 06/04/18 09:30 Sodium 140 mmol/L (136-145) 06/04/18 09:30 Potassium 4.1 mmol/L (3.5-5.1) D 06/04/18 09:30 Chloride 104 mmol/L (98-107) 06/04/18 09:30 Carbon Dioxide 26.8 mmol/L (21.0-32.0) 06/04/18 09:30 Anion Gap 9.2 mmol/L (3-11) 06/04/18 09:30 BUN 21 mg/dL (7-18) H 06/04/18 09:30 Creatinine 1.82 mg/dL (0.55-1.02) H 06/04/18 09:30 Estimated GFR/1.73 m2 27.16 (mL/min/1.73m2) 06/04/18 09:30 Glucose 207 mg/dL (70-100) H 06/04/18 09:30 Lactate 0.9 mmol/L (0.6-1.4) 06/04/18 09:30 Calcium 8.3 mg/dL (8.5-10.1) L 06/04/18 09:30 Magnesium 1.8 mg/dL (1.8-2.4) 06/04/18 09:30 Total Bilirubin 0.5 mg/dL (0.2-1.0) 06/04/18 09:30 Conjugated Bilirubin 0.16 mg/dL (0.00-0.20) 06/04/18 09:30 AST 25 U/L (15-37) 06/04/18 09:30 ALT 56 U/L (12-78) 06/04/18 09:30 Alkaline Phosphatase 51 U/L (46-116) 06/04/18 09:30 Troponin I 0.20 ng/mL (0.00-0.06) H 06/03/18 06:15 Total Protein 5.1 g/dL (6.4-8.2) L 06/04/18 09:30 Albumin 2.8 g/dL (3.4-5.0) L 06/04/18 09:30 Lipase 232 U/L (73-393) 06/02/18 11:56 Urine Color Yellow (Yellow) 06/02/18 14:35 Urine Clarity Clear 06/02/18 14:35 Urine pH 7.0 (5-8) 06/02/18 14:35 Ur Specific [place] 1.010 (1.005-1.025) 06/02/18 14:35 Urine Protein Negative mg/dL (Negative) 06/02/18 14:35 Urine Ketones Trace mg/dL (Negative) H 06/02/18 14:35 Urine Blood Trace-intact (Negative) H 06/02/18 14:35 Urine Nitrite Negative (Negative) 06/02/18 14:35 Urine Bilirubin Negative (Negative) 06/02/18 14:35 Urine Urobilinogen 0.2 EU/dL (Up TO 0.2) 06/02/18 14:35 Ur Leukocyte Esterase Negative (Negative) 06/02/18 14:35 Urine RBC 3-5 (0-2) H 06/02/18 14:35 Urine WBC 0-2 HPF (0-5) 06/02/18 14:35 Ur Epithelial Cells Few HPF (Negative) 06/02/18 14:35 Urine Crystals Negative HPF (Negative) 06/02/18 14:35 Urine Bacteria Rare HPF (Negative) 06/02/18 14:35 Urine Casts Negative LPF (Negative) 06/02/18 14:35 Urine Mucus Negative (Negative) 06/02/18 14:35 Ur Culture Indicated? No 06/02/18 14:35 Urine Glucose 500 mg/dL (Negative) H 06/02/18 14:35
[2018-06-04] MEDS: Allopurinol 100 MG TAB 200 MG PO (19:18)
[2018-06-04] MEDS: Citalopram 20 MG TAB PO (19:19)
--- NOTE | 2018-06-04 19:21 | NUR.NOTE ---
Nursing Note: Patient very belligerent at this time. Patient is making accusations that this hospital is trying to kill her. That the doctor has changed all of her medications and that this will affect her heart. Patient also states that she wants to talk to the doctor and that it is not right that she is the last to know anything because no one will communicate with her
[2018-06-05 04:20] VITALS: BP 152/71; PULSE 64; RESP 18; TEMP 36.2; O2SAT 96
[2018-06-05] MEDS: Normal Saline Flush 10 ML SYR IVP (07:17)
[2018-06-05 07:29] LABS: Abs Immature Grans 0.02 k/cumm (0.0-0.09); Absolute Basophil Count 0.02 k/cumm (0.0-0.2); Absolute Eosinophil Count 0.06 k/cumm (0.0-0.7); Absolute Monocyte Count 0.76 k/cumm (0.11-0.7); Absolute Neutrophil Count 2.89 k/cumm (1.2-6.7); Basophils % 0.3; HCT 39.9 % (36.0-46.0); HGB 12.9 g/dL (12.0-15.5); Immature Grans % 0.3; Mean Corp. HGB Concentration 32.3 g/dL (32.0-36.0); Mean Corpuscular Hemoglobin 30.7 pg (27.0-33.0); Mean Platelet Volume 11.4 fL (8.0-11.0); Monocytes % 12.6; Neutrophils % 47.8; Platelet Count 129 x1000/uL (130-400); White Blood Cell Count 6.05 k/cumm (4.4-10.8)
[2018-06-05 07:35] VITALS: BP 177/82; PULSE 75; RESP 18; TEMP 36.4; O2SAT 97
[2018-06-05 07:36] LABS: Anion Gap 6.2 mmol/L (3-11); BUN 21 mg/dL (7-18); CO2 28.8 mmol/L (21.0-32.0); CREATININE 1.83 mg/dL (0.55-1.02); Calcium 8.9 mg/dL (8.5-10.1); Chloride 107 mmol/L (98-107); Estimated GFR 26.98 (mL/min/1.73m2); Glucose 121 mg/dL (70-100); Magnesium 2.1 mg/dL (1.8-2.4); Potassium 4.5 mmol/L (3.5-5.1); Sodium 142 mmol/L (136-145)
--- NOTE | 2018-06-05 08:00 | DI.NM_ITS ---
SYMPTOMS/DIAGNOSIS: ABDOMINAL PAIN, H/O NAUSEA, VOMITING, ? GASTROPARESIS GASTRIC EMPTYING STUDY: 1.0 mCi of technetium 99m sulfur colloid was administered along with two eggs, two pieces of toast and eight ounces of water. At one hour, there was 22% of the administered meal remaining in the stomach. At two hours, there was 11% residual in the stomach. At four hours, there was 4% residual. The gastric emptying is normal. IMPRESSION: Normal gastric emptying.
[2018-06-05] MEDS: Metoprolol CR 25 MG TABCR PO (08:11)
[2018-06-05] MEDS: buPROPion-CR 150 MG TABCR PO (08:12)
[2018-06-05] MEDS: Magnesium Chloride 64 MG TABCR PO (08:12)
[2018-06-05] MEDS: Enoxaparin 30 MG/0.3 ML SYR SC (08:12)
[2018-06-05] MEDS: Aspirin E.C. 81 MG TABEC PO (08:12)
--- NOTE | 2018-06-05 08:59 | PDOC.CMPRO ---
Care Management Progress Note S/O: Marguerite will have a gastric emptying study completed today to inform next steps. She transferred to inpatient level of care yesterday as she continues to require monitoring including IV pain medications. Per RN, Marguerite is not being compliant with dietary choices and is requesting high carbohydrate foods. She has been pleasantly engaged with this underwriter solicitation director but declined MD examination yesterday. Her N/V has resolved per MD and she will likely require outpatient follow up and could discharge as soon as today. A: 72 y/o female admitted 06/02/18 for abdominal pain P: Marguerite will return home with no additional services anticipated at this time. She will follow up with her PCP and CCC as well as her plan of care as prescribed. Her Jaquan or friend Sulma will transport her when ready.
--- NOTE | 2018-06-05 09:04 | CMPROGNOTE_ITS ---
Care Management Progress Note S/O: Marguerite will have a gastric emptying study completed today to inform next steps. She transferred to inpatient level of care yesterday as she continues to require monitoring including IV pain medications. Per RN, Marguerite is not being compliant with dietary choices and is requesting high carbohydrate foods. She has been pleasantly engaged with this radio news writer but declined MD examination yesterday. Her N/V has resolved per MD and she will likely require outpatient follow up and could discharge as soon as today. A: 72 y/o female admitted 06/02/18 for abdominal pain P: Marguerite will return home with no additional services anticipated at this time. She will follow up with her PCP and CCC as well as her plan of care as prescribed. Her Jaquan or friend Sulma will transport her when ready.
[2018-06-05 16:12] VITALS: BP 162/56; PULSE 68; RESP 17; TEMP 36.5; O2SAT 99
[2018-06-05] MEDS: Insulin Aspart 300 UNITS/3 ML PEN SC (17:05)
--- NOTE | 2018-06-05 18:33 | DSE_ITS ---
Date of service: 06/05/18 Time of Service: 18:29 DS: Diagnosis Discharge Diagnosis (1) Abdominal pain: Status: Acute (2) Insulin-requiring or dependent type II diabetes mellitus: Status: Acute (3) CHF (congestive heart failure): Status: Chronic (4) Diabetic nephropathy: Status: Acute (5) Hypertension: Status: Chronic Discharge Plan Disposition Patient Disposition: HOME Condition: Stable Discharge Details Reason For Visit: ABDOMINAL PAIN Admit Date/Time: 06/04/18 18:05 Admit Provider: Luis Trivedi Attending Provider: Luis Trivedi Primary Care Provider: Trent Weeks Hospital Course Hospital Course: Ms Escalante is a 72 year old female with PMHx of poorly controlled diabetes, hypertension, recent bout of colitis, and noncompliance who was admitted to [facility] on 06/02/18 for LUQ abdominal pain, nausea, and vomiting. She had a negative workup including abdominal CT and gastric emptying study. She was evaluated by general surgery who felt that the patient did not have an active surgical issue. Patient's nausea resolved and she was able to tolerate PO. She, however, continues to complain of abdominal pain. She is medically stable for discharge with follow up with GI as outpatient for her nonspecific abdominal pain. She is asked to follow up with her PCP in 1-2 weeks. Home Meds and New Rx's Prescriptions: New tramadol 50 mg Tablet 50 mg PO Q6H PRN PRNQty: 20 RF: 0 magnesium chloride [Mag 64] 64 mg Tablet,Delayed Release (Dr/Ec) 64 mg PO DAILY Qty: 30 RF: 0 Continued multivitamin [Daily Multi-Vitamin] tablet 1 tab PO DAILY RF: 0 turmeric root extract 500 mg capsule 500 mg PO DAILY RF: 0 Lantus U-100 Insulin 100 UNIT/1 ML solution 58 units Sub-Q DAILY RF: 0 Novolog Flexpen U-100 Insulin 300 UNITS/3 ML insulin pen Sub-Q TID RF: 0 aspirin [Ecotrin Low Strength] 81 MG tablet,delayed release (DR/EC) 81 mg PO DAILY RF: 0 metoprolol succinate 25 MG tablet extended release 24 hr 25 mg PO DAILY RF: 0 torsemide 100 MG tablet 50 mg PO DAILY RF: 0 allopurinol 100 MG tablet 200 mg PO QPM RF: 0 citalopram [Celexa] 20 MG tablet 20 mg PO QPM RF: 0 bupropion HCl [Wellbutrin SR] 150 MG tablet extended release 12 hr 150 mg PO BID RF: 0 acetaminophen [Tylenol] 325 MG tablet 650 mg PO Q6H PRN PRN (Reason: Pain) Qty: 90 RF: 0 ascorbic acid (vitamin C) 500 MG tablet 500 mg PO DAILY Qty: 90 RF: 0 vitamin E 400 UNIT capsule 400 unit PO DAILY Qty: 90 RF: 0 Discontinued levofloxacin 750 mg tablet 750 mg PO DAILY Qty: 5 RF: 0 oxycodone 5 mg tablet 5 mg PO Q6H PRN (Reason: pain) Qty: 10 RF: 0 Discharge Instructions Instructions: Acute Abdominal Pain (DC) Additional Instructions: Return to the hospital with any fever, bleeding, chest pain, or shortness of breath. Follow up with your PCP in 1-2 days. Follow up with GI at [facility]. Activity:: Activity as Tolerated Equipment/Supplies:: No Equipment Needed Diet:: Carb Counting Discharge Orders Discharge Orders: Discharge Order (Routine); Ordered 06/05/18 Ordered By: Sandy Brooks Exam Narrative Exam Narrative: General: A&OX3, anxious obese female HEENT: EOMI, MMM Heart: RRR, systolic ejection murmur Lungs: Crackles at B bases GI: abdomen soft, possibly mildly tender in LUQ Extremities; no e/c/c BLE's DS: Data Vitals/I&O Vitals and I&O: Vital Signs Temperature 36.5 C 06/05/18 16:12 Temperature Source Tympanic 06/05/18 16:12 Pulse 68 06/05/18 16:12 Pulse Rhythm Regular 06/05/18 08:00 Pulse 62 06/02/18 20:31 Respiratory Rate 17 06/05/18 16:12 Respiratory Effort Non-Labored 06/05/18 08:00 Respiratory Depth Normal 06/05/18 08:00 Respiratory Pattern Normal 06/05/18 08:00 Blood Pressure 162/56 H 06/05/18 16:12 Blood Pressure Mean 80 06/02/18 20:30 Blood Pressure Position Supine 06/02/18 10:57 Pulse Oximetry 99 06/05/18 16:12 Oxygen Delivery Method Room Air 06/05/18 16:12 Oxygen Flow Rate 0 06/05/18 16:12 Pain Level 7 06/05/18 07:16 Comment 06/05/18 04:20 Intake & Output 06/04/18 06/05/18 06/05/18 23:59 11:59 23:59 Intake Total 240 / 610 480 / 480 Output Total 750 / 1050 800 / 1700 900 / 1700 Balance -510 / -440 -320 / -1220 -900 / -1220 Weight 117.9 kg Intake: Oral 240 / 600 480 / 480 Output: Urine 750 / 1050 800 / 1700 900 / 1700 Other: Urine Color Straw Yellow Yellow Urine Appearance Clear Clear Clear Urine Odor Normal Comment Pt voids independently. Pt voids indep. Voiding Methods Toilet Toilet Completed studies during hospitalization [Text1]: Gastric emptying study: Normal gastric emptying. CXR: Cardiomegaly. No acute abnormality. Impression: No evidence of an acute abdomen Labs on day of discharge: Labs from last 24 hours 06/05/18 06/05/18 06/05/18 07:02 07:02 07:02 WBC 6.05 RBC 4.20 Hgb 12.9 Hct 39.9 MCV 95.0 MCH 30.7 MCHC 32.3 RDW 14.0 Plt Count 129 L MPV 11.4 H Immature Gran % 0.3 Neutrophils % 47.8 Lymphocytes % 38.0 Monocytes % 12.6 Eosinophils % 1.0 Basophils % 0.3 Absolute Neutrophils 2.89 Absolute Lymphocytes 2.30 Absolute Monocytes 0.76 H Absolute Eosinophils 0.06 Absolute Basophils 0.02 Sodium 142 Potassium 4.5 Chloride 107 Carbon Dioxide 28.8 Anion Gap 6.2 BUN 21 H Creatinine 1.83 H Estimated GFR/1.73 m2 26.98 Glucose 121 H D Hemoglobin A1c 9.0 H Calcium 8.9 Magnesium 2.1 PFSH Medical History Chronic kidney disease (Acute) Hyperlipemia (Acute) Coronary artery disease (Chronic) Depression (Chronic) Diabetes (Chronic) Gout (Chronic) HTN (hypertension) (Chronic) Obstructive sleep apnea (Chronic) Surgical History H/O aortic valve replacement (Acute) Hx of CABG (Chronic) Triple Coronary bypass (~2012) aortic valve replacement (~2012) Family History Mother Breast cancer Social History Smoking/Tobacco Use Status: Never alcohol intake: never substance use type: does not use Female Reproductive History Menstrual Menopause type: natural History History 2 Para 2 Hx # Term Pregnancies 2 Multiple births Hx # Pregnancies Ectopic pregnancies AB induced Hx Number of Living Children AB spontaneous
== END 2018-06-05 18:55 | disposition home or self-care (01) | DRG 392 ==
LOC: ER 19:25 → MS 20:54
PROVIDERS: Admitting Provider General Practice; Emergency Provider Physician Assistant; PCP Internal Medicine; Visit Provider Internal Medicine
DX: R10.12 Left upper quadrant pain (principal); I13.0 Hypertensive heart and chronic kidney disease with heart failure and stage 1 through stage 4 chronic kidney disease, or unspecified chronic kidney disease; N17.9 Acute kidney failure, unspecified; R11.2 Nausea with vomiting, unspecified; E11.42 Type 2 diabetes mellitus with diabetic polyneuropathy; Z79.4 Long term (current) use of insulin; I50.9 Heart failure, unspecified; E11.65 Type 2 diabetes mellitus with hyperglycemia; N18.9 Chronic kidney disease, unspecified; E11.22 Type 2 diabetes mellitus with diabetic chronic kidney disease; Z91.11 Patient's noncompliance with dietary regimen; Z91.14 Patient's other noncompliance with medication regimen
CPT/HCPCS: 36415; 78265; 80048; 80051; 80053; 80076; 83690; 84520; 93005; 96361; 96365; 96366; 96375; 99213; 99222; 99232; 99239; 99252; 99285; NC; 71046; 74176; 81003; 81015; 82565; 83036; 83605; 83735; 84460; 84484; 85025; 93010; 99219; 99225; G0378; J1650

== ENCOUNTER 2018-06-15 00:32 | Outpatient (CLI) | payer MEDICARE, SELFPAY ==
--- NOTE | 2018-06-15 11:34 | DI.US_ITS ---
SYMPTOMS/DIAGNOSIS: CAROTID BRUIT, R09.89 CAROTID ULTRASOUND: Routine examination was performed. On the left there is calcific plaque seen in the bulb, proximal external carotid artery and proximal internal carotid artery. No hemodynamically significant velocity elevations are seen on the left. The left vertebral artery is antegrade. There is calcific plaque seen on the right in the mid common carotid artery, carotid bulb and the proximal internal carotid artery. Significant velocity elevations are seen in the internal carotid artery on the right consistent with greater than 70% right internal carotid artery stenosis. The right vertebral artery is antegrade. Incidental note is made of a heterogeneous thyroid gland with several thyroid nodules. IMPRESSION: 1. Marked right internal carotid artery stenosis (greater than 70%). 2. No hemodynamically significant left internal carotid artery stenosis. 3. Heterogeneous thyroid gland with multiple nodules. Thyroid ultrasound may be considered on a nonemergent basis for further evaluation.
== END 2018-06-15 00:52 ==
PROVIDERS: PCP Internal Medicine; Referring Provider Specialist; Visit Provider Internal Medicine
DX: R09.89 Other specified symptoms and signs involving the circulatory and respiratory systems (principal); I65.21 Occlusion and stenosis of right carotid artery; E04.2 Nontoxic multinodular goiter
CPT/HCPCS: 93880

== ENCOUNTER 2018-09-01 00:52 | Outpatient (CLI) | payer MEDICARE, SELFPAY ==
--- NOTE | 2018-09-01 12:09 | DI.US_ITS ---
SYMPTOMS/DIAGNOSIS: MULTINODULAR THYROID GOITER, E04.2 ULTRASOUND OF THE THYROID GLAND: Sonographic evaluation of the thyroid gland was performed. No priors for comparison. The right lobe of the thyroid gland measures 2.6 cm transverse x 5.4 cm long x 1.9 cm AP. The left lobe measures 2.6 cm transverse x 5.3 cm long x 2.5 cm AP. There are multiple predominantly cystic nodules scattered throughout both lobes of the thyroid gland. The largest cystic structure is septated and located in the inferior aspect of the right lobe and measures 0.8 x 0.5 x 0.5 cm. Complex cystic avascular nodules are seen in the left lobe, the largest measuring 0.5 x 0.7 x 0.8 cm. There is a solid complex nodule in the upper pole of the right lobe measuring 0.9 x 1.4 x 1.1 cm. There is some internal blood flow noted. There is symmetric blood flow to the thyroid gland. IMPRESSION: Multinodular thyroid gland. Dominant nodule is seen in the upper pole of the right lobe measuring 0.9 x 1.4 x 1.1 cm. There is some internal blood flow noted in this nodule.
[2018-09-01 12:51] LABS: FREE T4 1.01 ng/dL (0.76-1.46); TSH 1.49 uIU/mL (0.358-3.74)
== END 2018-09-01 01:12 ==
PROVIDERS: PCP Internal Medicine; Visit Provider Internal Medicine
DX: E04.2 Nontoxic multinodular goiter (principal)
CPT/HCPCS: 36415; 76536; 84439; 84443

== ENCOUNTER 2018-11-19 11:25 | Outpatient (CLI) | payer MEDICARE, SELFPAY ==
[2018-11-19 11:56] LABS: HCT 41.3 % (36.0-46.0); HGB 13.6 g/dL (12.0-15.5); Mean Corp. HGB Concentration 32.9 g/dL (32.0-36.0); Mean Corpuscular Hemoglobin 30.9 pg (27.0-33.0); Mean Corpuscular Volume 93.9 fL (80-95); Mean Platelet Volume 11.3 fL (8.0-11.0); Platelet Count 158 x1000/uL (130-400); RBC Distribution Width 13.6 % (11.7-14.6); White Blood Cell Count 8.13 k/cumm (4.4-10.8)
[2018-11-19 12:56] LABS: Creatinine,Urine 79.14 mg/dL
[2018-11-19 12:59] LABS: Albumin 3.6 g/dL (3.4-5.0); Anion Gap 9.4 mmol/L (3-11); BUN 42 mg/dL (7-18); CO2 28.6 mmol/L (21.0-32.0); Calcium 9.1 mg/dL (8.5-10.1); Chloride 104 mmol/L (98-107); Estimated GFR 24.36 (mL/min/1.73m2); Glucose 216 mg/dL (70-100); PHOSPHORUS 3.5 mg/dL (2.6-4.7); Sodium 142 mmol/L (136-145)
[2018-11-19 13:10] LABS: COMMENT (LAB VIEW ONLY) 79.84 mg/dL
== END 2018-11-19 11:45 ==
PROVIDERS: PCP Internal Medicine; Visit Provider Internal Medicine Nephrology
DX: N18.4 Chronic kidney disease, stage 4 (severe) (principal)
CPT/HCPCS: 36415; 80069; 85027; 82043; 82565; 82570

== ENCOUNTER 2018-12-21 10:36 | Outpatient (REF) | payer MEDICARE, SELFPAY ==
[2018-12-21 21:53] LABS: Calculated LDL 63 mg/dL; Cholesterol 129 mg/dL (50-200); HDL Cholesterol 57 mg/dL (40-60); Triglyceride 47 mg/dL (30-150)
== END 2018-12-21 10:56 ==
LOC: NCHCN 10:36
PROVIDERS: PCP Internal Medicine; Visit Provider Internal Medicine
DX: E78.5 Hyperlipidemia, unspecified
CPT/HCPCS: 80061; 83721

== ENCOUNTER 2019-03-29 01:49 | Outpatient (CLI) | payer MEDICARE, MEDICAID, SELFPAY ==
--- NOTE | 2019-03-29 13:00 | DIABASSESS_ITS ---
DESCRIPTION/ASSESSMENT: Marguerite Schmitz presents for diabetes self management with a change in medication decreasing Lantus and adding Trulicity. She does not have her glucometer with her, but states she monitors before each meal. States fasting blood sugar usually 80-100 but now out of control this morning at 147mg/dl. She is here because her [employer] Instrument Repairer does not feel her blood sugars are in adequate control. He suggests dosing insulin for amount of carbohydrate consumed. She states she has been doing poorly in many ways since her in November. Currently takes 25u Lantus reduced from 60 due to addition of Trulicity, and Novolog with each meal starting at 6 units for carbohydrate foods and insulin correction of 3 units for every 40mg/dl above 140mg/dl. She is prescribed Trulicity but was unable to use the pen so went to the pharmacist to learn how to do this. She does not wish for help at this time with that. She states she does not know how to count carbohydrates but does think it would help her blood sugars to dose Novolog to cover the amount of carbohydrate she eats. This morning she ate 1/2 can corn beef hash, 2 low carb toast and 1/2 small banana estimated at 30 grams carbohydrate. Marguerite reports walking to the chickens as about her only physical activity. She had a small container garden this year; her 's garden remains fallow. INTERVENTION: Reviewed carbohydrate identification and identifying amount of carbohydrate in what she eats using diabetes food guide and NovoNordisk carbohydrate counting booklet. She does read the label and does the appropriate conversion based on her serving size. She feels confident she can count carbohydrate in the meal and dose insulin accordingly. Discussed dosing insulin for carbohydrate and she agrees as there are times she eats more than other times. Calculate 1 unit for 6 grams carbohydrate based on recent insulin dosing. Suggest initially to take 2 units for every carbohydrate serving. We practiced different scenarios for dosing Novolog at 2 units per carbohydrate serving. Reviewed hypoglycemia symptoms and treatment. ACTION PLAN: Marguerite will: calculate amount of carbohydrate intake at a meal and dose 2 units for every carbohydrate to be eaten at the meal. In addition, she will add her insulin correction at 3u every 40mg/dl above 140mg/dl per her current scale. She will take her trulicity as prescribed. She will carry glucose with her at all times Individual DSME/T __2__ units billed 65 minutes face to face No DM group education series being offered at this time. 10/05/18 TC to Marguerite to see how it is working. She has questions about dosing for carbohydrate and these are answered. She has just now successfully self- injected Trulicity.
== END 2019-03-29 02:09 ==
PROVIDERS: PCP Internal Medicine; Visit Provider Dietitian, Registered
DX: E11.65 Type 2 diabetes mellitus with hyperglycemia (principal); Z79.84 Long term (current) use of oral hypoglycemic drugs; Z71.3 Dietary counseling and surveillance
CPT/HCPCS: G0108

== ENCOUNTER 2019-04-09 01:47 | Outpatient (CLI) | payer MEDICARE, MEDICAID, SELFPAY ==
[2019-04-09 10:48] LABS: ALT 45 U/L (14-59); AST 30 U/L (15-37); Albumin 3.8 g/dL (3.4-5.0); Alkaline Phosphatase 61 U/L (46-116); Anion Gap 7.9 mmol/L (3-11); BUN 38 mg/dL (7-18); Bilirubin, Total 0.6 mg/dL (0.2-1.0); CO2 31.1 mmol/L (21.0-32.0); CREATININE 1.96 mg/dL (0.55-1.02); Calcium 8.7 mg/dL (8.5-10.1); Chloride 104 mmol/L (98-107); Estimated GFR 24.86 (mL/min/1.73m2); Glucose 141 mg/dL (70-100); Potassium 4.1 mmol/L (3.5-5.1); Sodium 143 mmol/L (136-145); TSH 0.79 uIU/mL (0.36-3.74); Total Protein 6.5 g/dL (6.4-8.2)
[2019-04-09 17:01] LABS: Calculated LDL 58 mg/dL; Cholesterol 124 mg/dL (50-200); HDL Cholesterol 57 mg/dL (40-60); Triglyceride 49 mg/dL (30-150)
[2019-04-09 18:05] LABS: FREE T4 1.08 ng/dL (0.76-1.46)
[2019-04-12 07:56] LABS: Vitamin D 25 Total 43.5 ng/ml (30-100)
[2019-04-13 07:33] LABS: 1,25-Dihydroxyvitamin D 17 pg/mL (18-78)
== END 2019-04-09 02:07 ==
PROVIDERS: PCP Internal Medicine; Visit Provider Internal Medicine Endocrinology, Diabetes & Metabolism
DX: E11.65 Type 2 diabetes mellitus with hyperglycemia (principal); E04.2 Nontoxic multinodular goiter; E55.9 Vitamin D deficiency, unspecified
CPT/HCPCS: 36415; 80053; 80061; 82306; 82652; 84436; 84439; 84443

== ENCOUNTER 2019-05-27 03:07 | Outpatient (CLI) | payer MEDICARE, MEDICAID, SELFPAY ==
[2019-05-27 10:20] LABS: HCT 42.1 % (36.0-46.0); Mean Corp. HGB Concentration 33.3 g/dL (32.0-36.0); Mean Corpuscular Hemoglobin 30.9 pg (27.0-33.0); Mean Corpuscular Volume 92.9 fL (80-95); Mean Platelet Volume 11.1 fL (8.0-11.0); Platelet Count 146 x1000/uL (130-400); RBC 4.53 m/cumm (4.00-5.20); RBC Distribution Width 13.8 % (11.7-14.6); White Blood Cell Count 6.98 k/cumm (4.4-10.8)
[2019-05-27 10:59] LABS: Albumin 3.6 g/dL (3.4-5.0); BUN 40 mg/dL (7-18); CREATININE 1.88 mg/dL (0.55-1.02); Calcium 8.9 mg/dL (8.5-10.1); Chloride 104 mmol/L (98-107); Estimated GFR 26.09 (mL/min/1.73m2); Glucose 227 mg/dL (74-106); PHOSPHORUS 4.2 mg/dL (2.6-4.7); Sodium 143 mmol/L (136-145)
== END 2019-05-27 03:27 ==
PROVIDERS: PCP Internal Medicine; Visit Provider Psychiatry & Neurology Neurology
DX: N18.3 Chronic kidney disease, stage 3 (moderate) (principal)
CPT/HCPCS: 36415; 80069; 85027

== ENCOUNTER 2019-06-22 00:39 | Outpatient (CLI) | payer MEDICARE, MEDICAID, SELFPAY ==
--- NOTE | 2019-06-22 11:49 | DI.MAMMO_ITS ---
EXAM: MG MAMMO SCREENING CLINICAL HISTORY: SCREENING Z12.31. TECHNIQUE: Full field digital CC and MLO mammographic images were obtained with 3D tomosynthesis and utilizing computer aided detection (CAD). COMPARISON: . 2011 through 2017 FINDINGS: Breast Density - Category B - Scattered areas of fibroglandular density Masses/Architectural Distortion: None seen. Microcalcifications: No suspicious pleomorphic-type calcifications are seen. Skin Thickening/Nipple Retraction: None. Axilla: Unremarkable. IMPRESSION: 1. BI-RADS category 1, negative. No significant interval change with no specific features of maligna ncy noted. 2. Unless there is more urgent need, screening mammography is recommended, as per [place] guidelines. A negative radiographic report should not delay biopsy if a dominant or clinically suspicious mass is present. Up to ten percent of cancers are not identified on mammography. A negative report may reinforce clinical impression. Adenosis and dense breasts may obscure an underlying neoplasm. False positive reports average 6 to 10%. Patient will receive a letter notifying them of these results.
== END 2019-06-22 00:59 ==
PROVIDERS: PCP Internal Medicine; Visit Provider Internal Medicine
DX: Z12.31 Encounter for screening mammogram for malignant neoplasm of breast (principal)
CPT/HCPCS: 77063; 77067

== ENCOUNTER 2019-10-06 09:41 | Outpatient (REF) | payer MEDICARE, MEDICAID, SELFPAY ==
[2019-10-06 21:15] LABS: Anion Gap 5.5 mmol/L (3-11); BUN 30 mg/dL (7-18); CO2 32.5 mmol/L (21.0-32.0); CREATININE 1.93 mg/dL (0.55-1.02); Calcium 9.1 mg/dL (8.5-10.1); Chloride 102 mmol/L (98-107); Estimated GFR 25.31 (mL/min/1.73m2); Glucose 187 mg/dL (74-106); Potassium 4.1 mmol/L (3.5-5.1); Sodium 140 mmol/L (136-145)
[2019-10-06 21:25] LABS: Hemoglobin A1C 8.1 % (3.8-5.6)
== END 2019-10-06 10:01 ==
LOC: NCHCN 09:41
PROVIDERS: PCP Internal Medicine; Visit Provider Internal Medicine
DX: E11.65 Type 2 diabetes mellitus with hyperglycemia (principal); I10 Essential (primary) hypertension; I25.10 Atherosclerotic heart disease of native coronary artery without angina pectoris
CPT/HCPCS: 80048; 83036

== ENCOUNTER 2019-11-24 03:56 | Outpatient (CLI) | payer MEDICARE, MEDICAID, SELFPAY ==
[2019-11-24 10:48] LABS: HCT 40.5 % (36.0-46.0); HGB 13.2 g/dL (12.0-15.5); Mean Corp. HGB Concentration 32.6 g/dL (32.0-36.0); Mean Corpuscular Volume 95.1 fL (80-95); Mean Platelet Volume 11.4 fL (8.0-11.0); Platelet Count 149 x1000/uL (130-400); RBC 4.26 m/cumm (4.00-5.20); RBC Distribution Width 13.8 % (11.7-14.6); White Blood Cell Count 7.01 k/cumm (4.4-10.8)
[2019-11-24 11:44] LABS: Albumin 3.8 g/dL (3.4-5.0); Anion Gap 8.2 mmol/L (3-11); BUN 30 mg/dL (7-18); CO2 29.8 mmol/L (21.0-32.0); CREATININE 1.92 mg/dL (0.55-1.02); Calcium 8.9 mg/dL (8.5-10.1); Chloride 104 mmol/L (98-107); Estimated GFR 25.46 (mL/min/1.73m2); Potassium 4.1 mmol/L (3.5-5.1); Sodium 142 mmol/L (136-145)
[2019-11-25 11:05] LABS: Parathyroid Hormone,Intact 95 pg/mL (19-88)
== END 2019-11-24 04:16 ==
PROVIDERS: PCP Internal Medicine; Visit Provider Psychiatry & Neurology Neurology
DX: N18.4 Chronic kidney disease, stage 4 (severe) (principal)
CPT/HCPCS: 36415; 80048; 80051; 84520; 85027; 82040; 82310; 82565; 83970; 84100

== ENCOUNTER 2019-12-07 07:27 | Outpatient (CLI) | payer MEDICARE, MEDICAID, SELFPAY ==
[2019-12-12 12:22] LABS: SARS-CoV-2 RNA Undetected (Undetected); SARS-CoV-2 Specimen Source Nasopharynx
== END 2019-12-07 07:47 ==
PROVIDERS: PCP Internal Medicine; Visit Provider Internal Medicine
DX: Z11.59 Encounter for screening for other viral diseases (principal)
CPT/HCPCS: U0003

== ENCOUNTER 2020-03-31 13:32 | Outpatient (REF) | payer MEDICARE, MEDICAID, SELFPAY ==
[2020-04-05 16:30] LABS: Patient Race White; SARS-CoV-2 RNA Undetected (Undetected); SARS-CoV-2 Specimen Source Nasal
== END 2020-03-31 13:52 ==
LOC: NCHCN 13:32
PROVIDERS: PCP Internal Medicine; Visit Provider Internal Medicine
DX: Z20.828 Contact with and (suspected) exposure to other viral communicable diseases (principal)
CPT/HCPCS: U0003

== ENCOUNTER 2020-06-02 03:32 | Outpatient (CLI) | payer MEDICARE, MEDICAID, SELFPAY ==
[2020-06-02 13:02] LABS: Abs Immature Grans 0.01 10^3/uL (0.0-0.06); Absolute Basophil Count 0.02 10^3/uL (0.0-0.2); Absolute Eosinophil Count 0.24 10^3/uL (0.0-0.7); Absolute Lymphocyte Count 1.94 10^3/uL (1.2-3.4); Absolute Monocyte Count 0.51 10^3/uL (0.1-0.8); Absolute Neutrophil Count 3.42 10^3/uL (1.2-6.7); Basophils % 0.3; Eosinophils % 3.9; HCT 38.1 % (36.0-46.0); HGB 12.3 g/dL (11.2-15.7); Immature Grans % 0.2; Lymphocytes % 31.6; MCH 30.7 pg (27.0-33.0); MCHC 32.3 % (32.0-36.0); MPV 11.6 fL (8.0-11.0); Monocytes % 8.3; Neutrophils % 55.7; Nucleated RBC 0 %; Platelet Count 150 10^3/uL (130-400); RBC 4.01 10^6/uL (3.93-5.22); RDW 13.8 % (11.7-14.6); RDW-SD 48.2 fL; WBC 6.14 10^3/uL (4.4-10.8)
[2020-06-02 14:05] LABS: ALT 42 U/L (14-59); AST 26 U/L (15-37); Albumin 3.7 g/dL (3.4-5.0); Alkaline Phosphatase 72 U/L (46-116); Anion Gap 6.8 mmol/L (3-11); BUN 34 mg/dL (7-18); Bilirubin, Total 0.5 mg/dL (0.2-1.0); CO2 31.2 mmol/L (21.0-32.0); CREATININE 1.91 mg/dL (0.55-1.02); Calcium 8.7 mg/dL (8.5-10.1); Chloride 104 mmol/L (98-107); Estimated GFR 25.55 (mL/min/1.73m2); Glucose 220 mg/dL (74-106); PHOSPHORUS 3.6 mg/dL (2.6-4.7); Sodium 142 mmol/L (136-145); Total Protein 6.1 g/dL (6.4-8.2)
== END 2020-06-02 03:52 ==
PROVIDERS: PCP Internal Medicine; Visit Provider Psychiatry & Neurology Neurology
DX: N18.4 Chronic kidney disease, stage 4 (severe) (principal)
CPT/HCPCS: 36415; 80053; 84100; 85025

== ENCOUNTER 2020-09-19 01:47 | Outpatient (CLI) | payer MEDICARE, MEDICAID, SELFPAY ==
--- NOTE | 2020-09-19 11:46 | DI.MAMMO_ITS ---
EXAM: MG MAMMO SCREENING CLINICAL HISTORY: SCREENING,Z12.31 TECHNIQUE: Bilateral full field digital CC and MLO mammographic images were obtained with 3D tomosyn thesis and utilizing computer aided detection (CAD). COMPARISON: Available for comparison. FINDINGS: Masses/Architectural Distortion: There is an asymmetry in the upper left breast on the MLO view. Microcalcifications: No suspicious pleomorphic-type are seen. Skin Thickening/Nipple Retraction: None. IMPRESSION: 1. There is an asymmetry in the upper left breast on the MLO. 2. This area should be further evaluated with a spot compression view. Ultrasound may be indicated a t that time. BI-RADS Category 0 - Assessment Incomplete: Need additional imaging evaluation Breast Density - Category B - Scattered areas of fibroglandular density Breast density category C or D implies that the patient has dense breast tissue. Dense breast tissue is very common and is not abnormal but dense breast tissue can make it harder to find cancer on a ma mmogram. Also, dense breast tissue may increase their breast cancer risk. This information about the result of the mammogram report was provided to the patient to raise their awareness. Use this report when you speak with the patient about their risks for breast cancer, which includes their family hist ory. At that time, you may recommend for more screening tests (Ultrasound or MRI) as they might be us eful based on their risk. A negative radiographic report should not delay biopsy if a dominant or clinically suspicious mass is present. Up to ten percent of cancers are not identified on mammography. A negative report may reinforce clinical impression. Adenosis and dense breasts may obscure an underlying neoplasm. False positive reports average 6 to 10%. Patient will receive a letter notifying them of these results.
== END 2020-09-19 02:07 ==
PROVIDERS: PCP Internal Medicine; Visit Provider Internal Medicine
DX: Z12.31 Encounter for screening mammogram for malignant neoplasm of breast (principal); R92.8 Other abnormal and inconclusive findings on diagnostic imaging of breast
CPT/HCPCS: 77063; 77067

== ENCOUNTER 2020-09-26 01:20 | Outpatient (CLI) | payer MEDICARE, MEDICAID, SELFPAY ==
--- NOTE | 2020-09-26 | DI.US_ITS ---
Exam(s) MG MAMMO SCREEN CALL BACK UNI US BREAST LT LIMITED EXAM: MG MAMMO SCREEN CALL BACK UNI and U/S breast LT limited CLINICAL HISTORY: F/U MAMMO, ASYMMETRY LT UPPER BREAST. TECHNIQUE: Craniocaudal and mediolateral oblique Full Field Digital Mammography views of the left br east with Computer Aided Diagnosis followed by Tomosynthesis and left breast ultrasound. COMPARISON: Priors available for comparison. FINDINGS: Mammography/Tomosynthesis: Masses/Architectural Distortion: None seen. Microcalcifictions: No suspicious pleomorphic-type are seen. Skin Thickening/Nipple Retraction: None. Left breast US: Echotexture: Normal appearance of the glandular tissue. Shadowing: No suspicious foci. Cyst: None. Solid lesions: None seen. Ductal dilation: None. IMPRESSION: 1. No evidence of malignancy is noted. 2. A six-month follow-up left mammogram is recommended for re-evaluation. 3. The findings were discussed with the patient on the date of the examination. BI-RADS Category 3 - 6 month - Probably Benign Finding: Recommend follow-up imaging in 6 months Breast Density - Category B - Scattered areas of fibroglandular density Breast density Category C or D implies that the patient has dense breast tissue. Dense breast tissue can make it harder to find cancer on a mammogram. Dense breast tissue is also associated with an incr eased risk of breast cancer. This information about the result of the mammogram report was provided to the patient to raise their awareness. Use this report when you speak with the patient about their risks for breast cancer, which includes their family history. At that time, you may recommend additional screening tests (Ultrasoun d or MRI) as these tests may add significant information. A negative radiographic report should not delay biopsy if a dominant or clinically suspicious mass is present. Up to ten percent of cancers are not identified on mammography. A negative report may reinforce clinical impression. Adenosis and dense breasts may obscure an underlying neoplasm. False positive reports average 6 to 10%. Patient will receive a letter notifying them of these results.
== END 2020-09-26 01:40 ==
PROVIDERS: PCP Internal Medicine; Visit Provider Internal Medicine
DX: Z12.31 Encounter for screening mammogram for malignant neoplasm of breast (principal); R92.8 Other abnormal and inconclusive findings on diagnostic imaging of breast; N64.59 Other signs and symptoms in breast
CPT/HCPCS: 76642; 77063; 77067

== ENCOUNTER 2021-04-04 00:50 | Outpatient (CLI) | payer MEDICARE, MEDICAID, SELFPAY ==
--- NOTE | 2021-04-04 | DI.MAMMO_ITS ---
Exam(s) MG MAMMO DIAGNOSTIC UNI EXAM: MG MAMMO DIAGNOSTIC UNI CLINICAL HISTORY: DIAGNOSTIC, F/U ABNL MAMMO,6 MO F/U, R92.8. TECHNIQUE: Unilateral left breast cc and MLO as well as spot mammographic images were obtained with 3D tomosynthesis technique and utilizing computer aided detection (CAD). COMPARISON: Prior mammograms dating back to 2011, the most recent being August and September 2020. Ultraso und September 2020 FINDINGS: The area of prior concern in the left breast seen on the August 2020 mammogram appears less concerning on the present study. No masses seen on 3D spot compression views. IMPRESSION: No radiographic evidence of malignancy in left breast. Appropriate follow-up is to keep this patient on her yearly mammogram schedule, this implying the nex t bilateral mammogram would be in August or September 2021, with earlier imaging if a self detected breast c hange is noted.. The patient was informed of the findings and follow-up recommendations prior to leaving the [facility] today. BI-RADS Category 3 - 6 month - Probably Benign Finding: Recommend follow-up mammography in 6 months Breast Density - Category B - Scattered areas of fibroglandular density Breast density Category C or D implies that the patient has dense breast tissue. Dense breast tissue can make it harder to find cancer on a mammogram. Dense breast tissue is also associated with an incr eased risk of breast cancer. This information about the result of the mammogram report was provided to the patient to raise their awareness. Use this report when you speak with the patient about their risks for breast cancer, which includes their family history. At that time, you may recommend additional screening tests (Ultrasoun d or MRI) as these tests may add significant information. A negative radiographic report should not delay biopsy if a dominant or clinically suspicious mass is present. Up to ten percent of cancers are not identified on mammography. A negative report may reinforce clinical impression. Adenosis and dense breasts may obscure an underlying neoplasm. False positive reports average 6 to 10%. Patient will receive a letter notifying them of these results.
== END 2021-04-04 01:10 ==
PROVIDERS: PCP Internal Medicine; Visit Provider Internal Medicine
DX: Z12.31 Encounter for screening mammogram for malignant neoplasm of breast (principal); R92.8 Other abnormal and inconclusive findings on diagnostic imaging of breast; N64.59 Other signs and symptoms in breast
CPT/HCPCS: 77061; 77065; G0279

== ENCOUNTER → 2022-02-25 01:58 | Outpatient (CLI) | payer MEDICARE, MEDICAID, SELFPAY ==
--- NOTE | 2022-02-25 | DI.MAMMO_ITS ---
Exam(s) MAMMO SCREENING EXAM: MAMMO SCREENING CLINICAL HISTORY: SCREENING FOR BREAST CANCER Z12.31 TECHNIQUE: Mammograms were interpreted according to the usual protocol including computer analysis w [employer] CAD system, tomosynthesis and C-view imaging. COMPARISON: 2013 through 2020 FINDINGS: The breasts are composed of scattered fibroglandular densities, Breast Density category B. No suspicious masses or suspicious microcalcifications are seen. No skin thickening or abnormal axillary lymph nodes are seen. There has been no significant change from prior exams. IMPRESSION: BI-RADS Category 1, Negative mammogram Yearly screening mammography is recommended. Breast Density - Category B, scattered fibroglandular densities. A negative radiographic report should not delay biopsy if a dominant or clinically suspicious mass is present. Up to ten percent of cancers are not identified on mammography. A negative report may reinforce clinical impression. Adenosis and dense breasts may obscure an underlying neoplasm. False positive reports average 6 to 10%. Patient will receive a letter notifying them of these results.
== END ==
PROVIDERS: PCP Internal Medicine; Visit Provider Internal Medicine
DX: Z12.31 Encounter for screening mammogram for malignant neoplasm of breast (principal)
CPT/HCPCS: 77063; 77067

== ENCOUNTER 2022-03-19 14:56 | Outpatient (REF) | payer MEDICARE, MEDICAID, SELFPAY ==
[2022-03-19 17:11] LABS: Anion Gap 8.1 mmol/L (3-11); BUN 47 mg/dL (7-18); CO2 29.9 mmol/L (21.0-32.0); CREATININE 1.7 mg/dL (0.55-1.02); Calcium 9.1 mg/dL (8.5-10.1); Chloride 104 mmol/L (98-107); Glucose 105 mg/dL (74-106); Potassium 3.9 mmol/L (3.5-5.1); Sodium 142 mmol/L (136-145)
[2022-03-20 09:56] LABS: CA 125 8 U/mL (<30)
== END 2022-03-19 14:57 | disposition home or self-care (01) ==
LOC: NCHCN 14:56
PROVIDERS: PCP Internal Medicine; Visit Provider Internal Medicine
DX: Z85.828 Personal history of other malignant neoplasm of skin (principal); E11.9 Type 2 diabetes mellitus without complications; N18.4 Chronic kidney disease, stage 4 (severe)
CPT/HCPCS: 80048; 86304

== ENCOUNTER 2022-07-29 18:20 | Outpatient (REF) | payer MEDICARE, MEDICAID, SELFPAY ==
[2022-07-29 15:30] LABS: Calculated LDL 45 mg/dL (<100); Cholesterol 113 mg/dL (<200); HDL Cholesterol 57 mg/dL (40-60); TSH 0.55 uIU/mL (0.36-3.74); Triglyceride 55 mg/dL (<150)
[2022-07-29 15:50] LABS: FREE T4 1.09 ng/dL (0.76-1.46); Uric Acid 4.8 mg/dL (2.6-6.0)
== END 2022-07-29 18:21 | disposition home or self-care (01) ==
LOC: NCHCN 18:20
PROVIDERS: PCP Internal Medicine; Visit Provider Internal Medicine
DX: E11.9 Type 2 diabetes mellitus without complications (principal); I25.10 Atherosclerotic heart disease of native coronary artery without angina pectoris; E04.2 Nontoxic multinodular goiter; F32.89 Other specified depressive episodes; M10.9 Gout, unspecified
CPT/HCPCS: 80061; 84439; 84443; 84550

== ENCOUNTER 2022-09-12 14:39 | Outpatient (REF) | payer MEDICARE, MEDICAID, SELFPAY ==
[2022-09-12 14:43] LABS: HCT 39.9 % (36.0-46.0); HGB 13.1 g/dL (11.2-15.7); MCH 31.6 pg (27.0-33.0); MCHC 32.8 % (32.0-36.0); MCV 96 fL (80-95); MPV 11.5 fL (8.0-11.0); Platelet Count 163 10^3/uL (130-400); RBC 4.15 10^6/uL (3.93-5.22); RDW 14.1 % (11.7-14.6); RDW-SD 49.6 fL; WBC 6.42 10^3/uL (4.4-10.8)
[2022-09-12 16:11] LABS: ALT 37 U/L (14-59); AST 31 U/L (15-37); Albumin 3.7 g/dL (3.4-5.0); Alkaline Phosphatase 72 U/L (46-116); Anion Gap 9.6 mmol/L (3-11); BUN 43 mg/dL (7-18); Bilirubin, Total 0.5 mg/dL (0.2-1.0); CO2 31.4 mmol/L (21.0-32.0); CREATININE 1.9 mg/dL (0.55-1.02); Calcium 9.3 mg/dL (8.5-10.1); Chloride 102 mmol/L (98-107); Estimated GFR 26.69 (mL/min/1.73m2); Glucose 146 mg/dL (74-106); Potassium 4.2 mmol/L (3.5-5.1); Sodium 143 mmol/L (136-145); Total Protein 6.6 g/dL (6.4-8.2)
== END 2022-09-12 14:40 | disposition home or self-care (01) ==
LOC: NCHCN 14:39
PROVIDERS: PCP Internal Medicine; Visit Provider Internal Medicine
DX: E11.9 Type 2 diabetes mellitus without complications (principal); N18.4 Chronic kidney disease, stage 4 (severe); I10 Essential (primary) hypertension
CPT/HCPCS: 80053; 85027; 87086

== ENCOUNTER 2023-03-04 16:58 | Outpatient (REF) | payer MEDICARE, MEDICAID, SELFPAY ==
[2023-03-04 20:57] LABS: HCT 36.9 % (36.0-46.0); HGB 12.2 g/dL (11.2-15.7); MCH 31.7 pg (27.0-33.0); MCHC 33.1 % (32.0-36.0); MCV 96 fL (80-95); MPV 11.9 fL (8.0-11.0); Platelet Count 185 10^3/uL (130-400); RBC 3.85 10^6/uL (3.93-5.22); RDW 14.5 % (11.7-14.6); RDW-SD 50.3 fL; WBC 9.39 10^3/uL (4.4-10.8)
[2023-03-04 20:58] LABS: ALT 26 U/L (14-59); AST 33 U/L (15-37); Albumin 3.7 g/dL (3.4-5.0); Alkaline Phosphatase 72 U/L (46-116); Anion Gap 10.1 mmol/L (3-11); BUN 61 mg/dL (7-18); Bilirubin, Total 0.5 mg/dL (0.2-1.0); CO2 28.9 mmol/L (21.0-32.0); CREATININE 1.9 mg/dL (0.55-1.02); Calcium 9.6 mg/dL (8.5-10.1); Chloride 103 mmol/L (98-107); Estimated GFR 26.53 (mL/min/1.73m2); Glucose 67 mg/dL (74-106); Potassium 3.1 mmol/L (3.5-5.1); Sodium 142 mmol/L (136-145)
== END 2023-03-04 16:59 | disposition home or self-care (01) ==
LOC: NCHCN 16:58
PROVIDERS: PCP Internal Medicine; Visit Provider Internal Medicine
DX: E11.9 Type 2 diabetes mellitus without complications (principal)
CPT/HCPCS: 80053; 85027

== ENCOUNTER → 2023-03-05 00:44 | Outpatient (CLI) | payer MEDICARE, MEDICAID, SELFPAY ==
--- NOTE | 2023-03-05 12:16 | DI.MAMMO_ITS ---
Exam(s) MAMMO SCREENING EXAM: MAMMO SCREENING CLINICAL HISTORY: SCREENING MAMMO Z12.31 TECHNIQUE: Mammograms were interpreted according to the usual protocol including computer analysis w [employer] CAD system, tomosynthesis and C-view imaging. COMPARISON: 2013 through 2021 FINDINGS: The breasts are composed of scattered fibroglandular densities, Breast Density category B. No suspicious masses or suspicious microcalcifications are seen. No skin thickening or abnormal axillary lymph nodes are seen. There has been no significant change from prior exams. IMPRESSION: BI-RADS Category 1, Negative mammogram Yearly screening mammography is recommended. Breast Density - Category B, scattered fibroglandular densities. A negative radiographic report should not delay biopsy if a dominant or clinically suspicious mass is present. Up to ten percent of cancers are not identified on mammography. A negative report may reinforce clinical impression. Adenosis and dense breasts may obscure an underlying neoplasm. False positive reports average 6 to 10%. Patient will receive a letter notifying them of these results.
== END ==
PROVIDERS: PCP Internal Medicine; Visit Provider Internal Medicine
DX: Z12.31 Encounter for screening mammogram for malignant neoplasm of breast (principal)
CPT/HCPCS: 77063; 77067